=== PATIENT | male | born 1980 | race Caucasian/White ===

== ENCOUNTER → 2017-02-03 | Outpatient (CLI) | payer SELFPAY | END | disposition home or self-care (01) | LOC: US 09:13 | DX: R10.11 Right upper quadrant pain (principal) ==

== ENCOUNTER 2017-02-22 07:54 | Inpatient (IN) | payer SELFPAY ==
[~2017-02-22] VITALS: Ht 172.7 cm; Wt 59.4 kg
--- NOTE | ~2017-02-22 | PR ---
[place], [place] PROGRESS NOTE NAME: NASREEN RUBIO III [facility] #: [id number] UNIT #: [id number] ROOM: 422 DOCTOR: BRIANA CORCORAN MD BIRTHDATE: [birth year] DOS: 03/01/2017 SUBJECTIVE: The patient is doing better. He is alert and awake and responsive. He is getting his pain medications, that is, Dilaudid every 3 hours. REVIEW OF SYSTEMS HEENT: No trouble swallowing. No double vision. No loss of vision. No pain. ENT AND RESPIRATORY: No wheeze. No change in voice. No cough. No shortness of breath. No coughing up blood. No epistaxis. CARDIOLOGIC: No chest pain. No dizziness. No irregular heartbeat. No leg edema. No palpitations. No shortness of breath. HEMATOLOGIC AND LYMPH: No past transfusion. No fatigue. No loss of appetite. No easy bruising. GASTROENTEROLOGIC: No change in bowel habits. No vomiting blood. No abdominal cramping. No nausea. No vomiting. No diarrhea. No constipation. No blood in stool. MALE REPRODUCTIVE: No testicular pain. No penile discharge. MUSCULOSKELETAL: No back pain. No muscle pain or weakness. No tingling/numbness. UROLOGIC: No pain with urination. No difficulty urinating. No frequent urination. NEUROLOGIC: No burning pain in feet. No trouble with coordination. No loss of consciousness. No headache. No tingling/numbness. No memory loss. OBJECTIVE: GENERAL: A pleasant gentleman, in no apparent distress. VITAL SIGNS: Blood pressure 123/59, respirations 18. Temperature 98.3. HEENT: Normocephalic, atraumatic NECK AND THYROID: Supple. No JVD, thyromegaly, or lymphadenopathy. HEART: Normal S1, S2. Regular rate and rhythm. LUNGS: Clear to auscultation and percussion. ABDOMEN: Soft. Bowel sounds positive. Not distended. Less tender. Debbie in place. EXTREMITIES: Normal ROM. No clubbing. No edema. LABORATORY DATA: White count of 17.6, hemoglobin 12.0, hematocrit 36.8, MCV 78.3. Platelets 502. Sodium 130, potassium 4.0, chloride 91, bicarbonate 32. EGFR more than 60. ASSESSMENT: 1. Metastatic colon cancer with mets to the liver, status post biopsy of the liver positive for adenocarcinoma. 2. Biopsy of the colectomy is pending. 3. Thrombocytosis, reactive. 4. Leukocytosis, reactive/infection. PLAN: I had detailed discussion with the patient about his overall condition. We will wait for the final report to come back. In the meantime, continue antibiotics and pain medications. I expect the platelet count and white count to improve once his overall condition improves. Ample time was given for the [place], [place] PROGRESS NOTE NAME: NASREEN RUBIO III UNIT #: [id number] ROOM: 422 DOCTOR: BRIANA CORCORAN MD BIRTHDATE: [birth year] patient to ask me questions. BRIANA CORCORAN MD CM:PNTRANS [id number] BRIANA CORCORAN MD 03/01/17926 interface
--- NOTE | ~2017-02-22 | CON ---
[place], [place] REPORT OF CONSULTATION NAME: NASREEN RUBIO III [facility] #: [id number] UNIT #: [id number] ROOM: 422 DOCTOR: RO LOPEZ MDANTHONYNAJMA BIRTHDATE: [birth year] DOS: HISTORY OF PRESENT ILLNESS: This is a 37-year-old patient who presented with chief complaint of right lower abdominal pain. The patient labels herself as having Crohn's disease in 1998. However, he has at no time being on the medication. The patient has been seen in outpatient clinics and he has been given a trial of iron supplementation and few trials of prednisone tapering dose management; however, it has not helped the situation and the patient had to be admitted for definitive evaluation. A panel of blood work was done. Lactic acid was 1.1. CBC: White blood cell 10, H and H of 11 and 37, microcytic indices all across. INR was 1.1. Comprehensive metabolic panel, GFR greater than 60. Electrolytes were balanced. Liver function test was normal. C-reactive protein 8.1. Urinalysis was unremarkable. CT scan of the abdomen and pelvis, extensive mass-like thickening predominantly at the hepatic flexure of the colon. PAST MEDICAL HISTORY: Suspected to have been Crohn's two decades ago. SOCIAL HISTORY: Nonsmoker, social alcohol consumer. FAMILY HISTORY: Noncontributory. PAST SURGICAL HISTORY: None. He mentions he has had back surgery and endoscopies. ALLERGIES: To no known medication. FAMILY HISTORY: Noncontributory. REVIEW OF SYSTEMS: GENERAL: No hematemesis, no hematochezia, no shortness of breath, no chest pain. DIGESTIVE SYSTEM: No diarrhea, no hematochezia. PHYSICAL EXAMINATION: GENERAL: Well-nourished. HEENT: Head normocephalic, nontraumatic. Eyes: Pupils round, reactive. Sclerae nonicteric. Mouth and buccal mucosa benign. NECK: Supple. No thyromegaly. No cervical lymphadenopathy. CHEST: Symmetric anatomy, equal expansion. No wheeze. No rhonchi. HEART: Normal sinus rhythm, no gallop, no murmur. ABDOMEN: Soft. No hepato-organomegaly. No rebound tenderness. Bowel sounds within normal limit. In subxiphoid area, he has a small rectus abdominis muscle split and has not been dominant hernia yet. Bowel sounds present. EXTREMITIES: No cyanosis. No pedal edema. NEUROLOGIC: Alert, oriented to time, place and person. IMPRESSION: Abnormal CT scan of the abdomen and right lower quadrant, right upper quadrant pain, old ambiguous history of Crohn's disease for past 20 years without be under treatment, status post multiple trials of the steroids and [place], [place] REPORT OF CONSULTATION NAME: NASREEN RUBIO III UNIT #: [id number] ROOM: 422 DOCTOR: CARLOS LOPEZ MD BIRTHDATE: [birth year] iron therapy, microcytic anemia. PLAN AND DISCUSSION: We will organize a colonoscopy on Monday. This is particularly of interest that his weight loss of 15 pounds could be associated with this suppression of appetite. Thank you very much indeed. CARLOS LOPEZ MD CM:CONSTR:REPORT OF CONSULTATION 1235 02/22/17 4810 interface
--- NOTE | ~2017-02-22 | PR ---
[place], [place] PROGRESS NOTE NAME: NASREEN RUBIO III [facility] #: [id number] UNIT #: [id number] ROOM: 422 DOCTOR: BRIANA CORCORAN MD BIRTHDATE: [birth year] DOS: 02/28/2017 SUBJECTIVE: The patient is doing better. He is more alert and responsive. REVIEW OF SYSTEMS: HEENT: No trouble swallowing. No double vision. No loss of vision. No pain. ENT AND RESPIRATORY: No wheeze. No change in voice. No cough. No shortness of breath. No coughing up blood. No epistaxis. CARDIOLOGIC: No chest pain. No dizziness. No irregular heartbeat. No leg edema. No palpitations. No shortness of breath. HEMATOLOGIC AND LYMPH: No past transfusion. No fatigue. No loss of appetite. No easy bruising. GASTROENTEROLOGIC: No change in bowel habits. No vomiting blood. No abdominal cramping. No nausea. No vomiting. No diarrhea. No constipation. No blood in stool. MALE REPRODUCTIVE: No testicular pain. No penile discharge. MUSCULOSKELETAL: No back pain. No muscle pain or weakness. No tingling/numbness. UROLOGIC: No pain with urination. No difficulty urinating. No frequent urination. NEUROLOGIC: No burning pain in feet. No trouble with coordination. No loss of consciousness. No headache. No tingling/numbness. No memory loss. PHYSICAL EXAMINATION: GENERAL: Pleasant gentleman, in no apparent distress. VITAL SIGNS: Blood pressure 120/79, respirations 18, pulse 84 and temperature 98.0. HEENT: Normocephalic, atraumatic. NECK AND THYROID: Supple. No JVD, thyromegaly or lymphadenopathy. HEART: Normal S1, S2. Regular rate and rhythm. LUNGS: Clear to auscultation and percussion. ABDOMEN: Soft. Nontender, nondistended. Bowel sounds present. EXTREMITIES: Normal ROM. No clubbing. No edema. LABORATORY DATA: Sodium 131, potassium 4.2, chloride 94 and bicarbonate 29. EGFR is more than 60. White count of 13.8, hemoglobin 11.1, hematocrit 35.1 and platelet count of 451,000. Per pathology, biopsy of the liver showed invasive adenocarcinoma, colon biopsy is pending. ASSESSMENT: 1. Metastatic stage 4 adenocarcinoma of the colon with metastasis to the liver. 2. Leukocytosis, reactive. 3. Anemia of neoplastic disorder. 4. Status post colon resection. PLAN: I have discussed in detail about the pathology reports. I also told that biopsy of the colon is still pending. Once I get everything together, further intervention. In the meantime, the patient is continuing on intensive spirometry, ambulation, as well as n.p.o. with IV fluids. Ample time was given to the patient to ask me questions. [place], [place] PROGRESS NOTE NAME: NASREEN RUBIO III UNIT #: [id number] ROOM: 422 DOCTOR: BRIANA CORCORAN MD BIRTHDATE: [birth year] BRIANA CORCORAN MD CM:PNTRANS 1331 1357 BRIANA CORCORAN MD 02/28/17 1357 interface
--- NOTE | ~2017-02-22 | PR ---
[place], [place] PROGRESS NOTE NAME: NASREEN RUBIO III [facility] #: [id number] UNIT #: [id number] ROOM: 422 DOCTOR: BRIANA CORCORAN MD BIRTHDATE: [birth year] DOS: 02/27/2017 SUBJECTIVE: He underwent colectomy and liver biopsy. PHYSICAL EXAMINATION: GENERAL: A pleasant gentleman in no apparent distress. VITAL SIGNS: Stable. HEENT: Normocephalic, atraumatic NECK AND THYROID: Supple. No JVD, thyromegaly, or lymphadenopathy. HEART: Normal S1, S2. Regular rate and rhythm. LUNGS: Clear to auscultation and percussion. ABDOMEN: Soft, tender. EXTREMITIES: Normal ROM. No clubbing. No edema. ASSESSMENT: 1. Metastatic colon cancer, status post colectomy and liver biopsy. 2. Hyponatremia. 3. Normocytic anemia. PLAN: We will wait for the path reports to come back. Depending upon that, further intervention discussed. BRIANA CORCORAN MD CM:PNTRANS 1330 1411 BRIANA CORCORAN MD 02/27/17 1411 interface
--- NOTE | ~2017-02-22 | PR ---
[place], [place] PROGRESS NOTE NAME: NASREEN RUBIO III [facility] #: [id number] UNIT #: [id number] ROOM: 422 DOCTOR: BRIANA CORCORAN MD BIRTHDATE: [birth year] DOS: 03/06/2017 SUBJECTIVE: The patient is doing much better. He has started eating. He is awake, alert, and responsive. REVIEW OF SYSTEMS: HEENT: No trouble swallowing. No double vision. No loss of vision. No pain. ENT AND RESPIRATORY: No wheeze. No change in voice. No cough. No shortness of breath. No coughing up blood. No epistaxis. CARDIOLOGIC: No chest pain. No dizziness. No irregular heartbeat. No leg edema. No palpitations. No shortness of breath. HEMATOLOGIC AND LYMPH: No past transfusion. No fatigue. No loss of appetite. No easy bruising. GASTROENTEROLOGIC: No change in bowel habits. No vomiting blood. No abdominal cramping. No nausea. No vomiting. No diarrhea. No constipation. No blood in stool. MALE REPRODUCTIVE: No testicular pain. No penile discharge. MUSCULOSKELETAL: No back pain. No muscle pain or weakness. No tingling/numbness. UROLOGIC: No pain with urination. No difficulty urinating. No frequent urination. NEUROLOGIC: No burning pain in feet. No trouble with coordination. No loss of consciousness. No headache. No tingling/numbness. No memory loss. PHYSICAL EXAMINATION: GENERAL: Pleasant gentleman in no apparent distress. VITAL SIGNS: Blood pressure 101/72, respirations 20, pulse 95, and temperature 98.2. HEENT: Normocephalic, atraumatic NECK AND THYROID: Supple. No JVD, thyromegaly, or lymphadenopathy. HEART: Normal S1, S2. Regular rate and rhythm. LUNGS: Clear to auscultation and percussion. ABDOMEN: Soft and nondistended. Incision dry and aditya intact. EXTREMITIES: Normal ROM. No clubbing. No edema. LABORATORY DATA: Sodium 135, potassium 4.0, chloride 100, and bicarbonate 29. White count 9.7, hemoglobin 11.5, hematocrit 35.8, and platelet count 556. Pathology was consistent with metastatic colon cancer. ASSESSMENT: 1. Metastatic stage IV colon cancer with mets to the liver. 2. Thrombocytosis, reactive. 3. Mild anemia. 4. ____. PLAN: Overall, he is doing much better. We will follow him as an outpatient. We will give him time to heal. I will review the path reports with pathologist regarding further intervention. Discussed with the patient in detail. Ample time was given to the patient to ask me questions. [place], [place] PROGRESS NOTE NAME: NASREEN RUBIO III UNIT #: [id number] ROOM: 422 DOCTOR: BRIANA CORCORAN MD BIRTHDATE: [birth year] BRIANA CORCORAN MD CM:PNADENIKE 1314 BRIANA CORCORAN MD 03/06/17 1348 interface
--- NOTE | ~2017-02-22 | CON ---
[place], [place] REPORT OF CONSULTATION NAME: NASREEN RUBIO III [facility] #: [id number] UNIT #: [id number] ROOM: 422 DOCTOR: BRIANA CORCORAN MD BIRTHDATE: [birth year] DOS: 02/25/2017 HISTORY OF PRESENT ILLNESS: The patient is a pleasant 37-year-old gentleman who presented to the Emergency Department complaining of right upper and lower quadrant pain for the past month. 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 He describes his pain as pressure, associated with nausea, loose stools and bloating. He has a history of Crohn's disease, which started in 1998. He has, however, not seen a physician until recently when he saw his way to doctor's clinic. He had a colonoscopy done which showed a mass and further workup revealed metastasis to the liver. I am consulted for further evaluation and management. PAST MEDICAL HISTORY: Significant for Crohn's disease [id number] after EGD and enteroscopy, history of GI bleed, intractable abdominal pain, hyponatremia and iron deficiency in the past. PAST SURGICAL HISTORY: Back surgery, history of EGD and history of colonoscopy 10 years ago and recently. SOCIAL HISTORY: No smoking or drug abuse. He drinks socially. FAMILY HISTORY: Father's age is 75. His mother has diabetes, age 64. ALLERGIES: No known allergies. MEDICATIONS: Prednisolone and ferrous sulfate. REVIEW OF SYSTEMS: CONSTITUTIONAL: No chills. No fatigue. No fever. No loss of appetite. No night sweats. No weakness. No weight loss. HEENT: No trouble swallowing. No loss of smell. No loss of hearing. No double vision. No pain. No discharge. ENT AND RESPIRATORY: No wheeze. No sore throat. No change in voice. No hearing loss. No nose bleed. No cough. No trouble breathing through nose. No shortness of breath. No coughing up blood. No epistaxis. CARDIOVASCULAR: No chest pain. No dizziness. No irregular heartbeat. No leg edema. No pain in legs while walking. No palpitations. No shortness of breath. DERMATOLOGIC: No acne. No hives. No laceration. No mole. No rash. ENDOCRINE: No cold intolerance. No diabetes. No fatigue. No hot flashes. No polydipsia. No polyuria. No urinating frequently. No weight loss. HEMATOLOGIC AND LYMPH: No fatigue. No easy bruising. GASTROENTEROLOGIC: He has been having right upper and lower quadrant pain and loss of weight. MALE REPRODUCTIVE: No testicular pain. No difficulty with erection. No diminished sexual drive. No penile discharge. MUSCULOSKELETAL: No back pain. No muscle pain or weakness. No neck pain. No tingling/numbness. No swelling/bruising. No osteoporosis treatment. OPTHALMOLOGIC: No double vision. No diminished vision. No loss of vision. [place], [place] REPORT OF CONSULTATION NAME: NASREEN RUBIO III UNIT #: [id number] ROOM: 422 DOCTOR: BRIANA CORCORAN MD BIRTHDATE: [birth year] UROLOGIC: No dysuria. No frequent nighttime urination. No pain with urination. No difficulty urinating. No blood in urine. No frequent urination. No urinary incontinence. NEUROLOGIC: No loss of sensation in specific body area. No vertigo. No burning pain in feet. No trouble with balance. No trouble with coordination. No loss of consciousness. No loss of feeling/power. No confusion. No headache. No tingling/numbness. PSYCHOLOGIC: No tinnitus. No headaches. No shortness of breath. No weight decrease. No nausea. No vomiting. No abdominal discomfort. No constipation. No diarrhea. No depression. No anxiety. PHYSICAL EXAMINATION: GENERAL: Pleasant gentleman, in no obvious distress. VITAL SIGNS: Stable. Blood pressure 140/79, respirations 20, pulse 88 and temperature 97.8. HEENT: Oral mucosa appears intact. The external ears are normal in appearance. Nares are patent without lesions, exudates, erythema, or inflammation. Tongue is symmetrical. Uvula is midline. NECK AND THYROID: Neck supple without palpable masses. Trachea is midline. No thyromegaly. No carotid bruit or JVD. BREASTS: Normal. Nipples unremarkable. No drainage. No lumps felt on either side. HEART: Normal S1, S2, without significant murmur, rub, or gallop. LUNGS: Clear to auscultation and percussion with good air entry bilaterally. The patient is breathing easily without the use of accessory muscles. Diaphragmatic excursions are intact. ABDOMEN: Tenderness in right upper quadrant. No costovertebral angle tenderness. Soft. No organomegaly or masses. No hernias present. Liver and spleen are not palpable. LYMPHATIC: No adenopathy noted in the cervical, supraclavicular, axillary or inguinal regions. NEUROLGIC: Nonfocal. Oriented to person, place, and time. MENTAL STATUS: Appropriate for mood and affect. PERIPHERAL PULSES: No varicosities. Femoral and pedal pulses are palpable. EXTREMITIES: Without cyanosis, clubbing, or edema. No gross anomalies. LABORATORY DATA: Sodium 138, potassium 3.9, chloride 104, bicarbonate 27, BUN 6 and EGFR more than 60. White count of 7.0, hemoglobin 11.3, hematocrit 36.4, MCV 79.8 and platelet count of 426. RADIOLOGY: CT of the abdomen and pelvis shows extensive mass-like thickening predominantly at the hepatic flexure of the colon, possible metastatic disease within the liver and no evidence of metastatic disease in the chest. ASSESSMENT: 1. Found to have a colon mass on colonoscopy with possible metastasis to the liver. 2. Anemia, probably of neoplastic disorder. 3. Loss of weight. 4. Intractable abdominal pain. [place], [place] REPORT OF CONSULTATION NAME: NASREEN RUBIO III UNIT #: [id number] ROOM: 422 DOCTOR: BRIANA CORCORAN MD BIRTHDATE: [birth year] PLAN: He is going for surgery on Monday. We will ask Dr. bIarra to do a biopsy of the liver also while he is in. In the meantime, we will wait for the pathology report of the colonoscopy and we will review other records, depending on further intervention. I had a detailed discussion with the patient about it, seemed to understand it. Ample time was given to the patient to ask me questions. We will follow. Thanks for the consultation and letting me participate in the care of this interesting patient. BRIANA CORCORAN MD CM:CONSTR:REPORT OF CONSULTATION 0917 02/27/17 0130 interface
--- NOTE | ~2017-02-22 | O ---
[place], [place] OPERATIVE NOTE NAME: NASREEN RUBIO III [facility] [id number] UNIT #: [id number] ROOM: 422 DOCTOR: CARLOS LOPEZ MD BIRTHDATE: [birth year] DOS: GASTROENDOSCOPIC REPORT INDICATIONS: A 37-year-old patient who has presented with chief complaint of abdominal pain, undergoing investigation. A CT scan was abnormal. PROCEDURE: Today's procedure part of investigation is colonoscopy plus biopsy. PREMEDICATION: Versed and Diprivan. SCOPE: Olympus forwarding colonoscope 10L video. REPORT: After putting the patient in the left lateral position and after application of lubricant to rectal pouch and digital examination, scope was introduced. Thereafter, under direct visualization, I advanced through the length of colon without difficulty. As we approached hepatic flexure, there is a large obstructing mass at the hepatic flexure infiltrated, ulcerated, partially obstructing. Photographic series obtained. Biopsies multiple times obtained. The patient extubated, tolerated procedure well. IMPRESSION: Large hepatic mass consistent with adenocarcinoma. PLAN: Surgical consultation, Dr. Ibarra and resection. Thank you very much indeed for your kind referral. Sincerely, CARLOS LOPEZ MD CM:OPRECORD:OPERATIVE NOTE 1117 1222 CARLOS LOPEZ MD 02/24/17 1222 interface
--- NOTE | ~2017-02-22 | PR ---
[place], [place] PROGRESS NOTE NAME: NASREEN RUBIO III [facility] #: [id number] UNIT #: [id number] ROOM: 422 DOCTOR: BRIANA CORCORAN MD BIRTHDATE: [birth year] DOS: 02/26/2017 SUBJECTIVE: The patient is doing better. He is awake, alert and responsive. PHYSICAL EXAMINATION GENERAL: Pleasant gentleman, in no apparent distress. VITAL SIGNS: Blood pressure 130/71, respirations 18, pulse 81, temperature 98.0. HEENT: Normocephalic, atraumatic NECK AND THYROID: Supple. No JVD, thyromegaly, or lymphadenopathy. HEART: Normal S1, S2. Regular rate and rhythm. LUNGS: Clear to auscultation and percussion. ABDOMEN: Soft. Nontender, nondistended. Bowel sounds present. EXTREMITIES: Normal ROM. No clubbing. No edema. LABORATORY DATA: Sodium 140, potassium 3.7, chloride 105, bicarbonate 27. White count of 8.0, hemoglobin 12.1, hematocrit 38.0, and platelet count of 468. ASSESSMENT: 1. Metastatic colon cancer. 2. History of Crohn's disease. 3. Hyponatremia. 4. Normocytic anemia, probably of neoplastic disorder. PLAN: The patient going for colon surgery, right hemicolectomy, in the morning. I have discussed the case with Dr. Ibarra also. He will also do a biopsy of the liver. I had a detailed discussion with the patient about it, seemed to understand it. Ample time was given to the patient to ask me questions. BRIANA CORCORAN MD CM:PNTRANS 0945 0259 BRIANA CORCORAN MD 02/27/17 0259 interface
--- NOTE | ~2017-02-22 | O ---
[place], [place] OPERATIVE NOTE NAME: NASREEN RUBIO III [facility] #: [id number] UNIT #: [id number] ROOM: 422 DOCTOR: FOX IBARRA MD BIRTHDATE: [birth year] DOS: 02/27/2017 PREOPERATIVE DIAGNOSIS: Advanced colon cancer with liver metastases. POSTOPERATIVE DIAGNOSIS: Advanced colon cancer with liver metastases. PROCEDURE: Exploratory laparotomy with extended right hemicolectomy with liver biopsy. SURGEON: Fox Ibarra M.D. DIRECTOR OF FIELD COORDINATION: JOSEFA. ANESTHESIA: General with endotracheal intubation. INDICATIONS: This is a 37-year-old gentleman who was admitted a few days prior to surgery with abdominal pain. Colonoscopy revealed a large mass in the region of the hepatic flexure of the colon, which was deemed to be malignant. It was decided to take the patient for the above-mentioned procedure. The procedure and its complications explained to the patient in detail. Complications that were discussed included but were not limited to bleeding, infection, hematoma/seroma/abscess formation, prolonged postoperative pain, anastomotic leak, damage to underlying vital structures and incisional hernia formation. He agreed to proceed. DESCRIPTION OF PROCEDURE: After identifying the patient, the patient was brought to the operating suite and laid in the supine position. After induction of general anesthesia, timeout procedure was called. A Mahoney catheter was placed and an NG was placed by the anesthesia team. The parts were then painted and draped in the usual sterile fashion. A midline incision with the help of knife was made. The skin and the subcutaneous tissue were incised. The fascia was incised vertically and the peritoneum was opened. Sergio retractor was placed for retraction. The mass was found to be in the region of the right colon/hepatic flexure region and was found to be pretty large. It was carefully dissected away from the retroperitoneum by incising the line of Toldt. The mass was then dissected away from the underlying retroperitoneum structures until adequate mobilization of the mass away from the retroperitoneum structures was obtained. Thereafter, a point was chosen in the region of the terminal ileum and also approximately 5 cm away from the distal end of the tumor in the mid transverse colon to the left of the middle colic artery. Both these structures (transverse colon and terminal ileum were transected with the CEE stapler). Thereafter, sequential mobilization of the mesocolon was performed with the help of serial ligation of the musculature as well as the LigaSure device. After the specimen was away completely, it was removed and sent for histopathological diagnosis. Hemostasis was achieved with the help of electrocautery and with the help of sutures and copious amounts of saline was used for irrigation. At this point, attention was turned towards the liver biopsy, which was done. This was excised partially with the help of electrocautery and sent for histopathological diagnosis. Hemostasis was achieved with the help of electrocautery in the biopsy site. At this point, [place], [place] OPERATIVE NOTE NAME: NASREEN RUBIO III UNIT #: [id number] ROOM: [facility] DOCTOR: FOX IBARRA MD BIRTHDATE: [birth year] stapled anastomosis between the terminal ileum and the mid transverse colon was done with the help of a CEE and TA stapler. The stapled line was buried with the help of 3-0 silk in an interrupted fashion. The defect in the mesenteric was closed with the help of 3-0 Vicryl in a running fashion. Thereafter, saline was used for irrigation and hemostasis was confirmed. The fascial defect was then approximated with the help of looped #1 PDS in a running fashion. The skin edges were approximated with the help of aditya. Thereafter, the subcutaneous tissue was irrigated. A dressing was placed. The patient was extubated uneventfully and brought back to the recovery room in stable fashion. Blood loss was [address] Fox Ibarra, the attending surgeon, was present throughout the operating case. Fox Ibarra MD CM:OPRECORD:OPERATIVE NOTE [id number] FOX IBARRA MD 03/06/17 0722 interface
[2017-02-22 07:59] VITALS: BP 135/94
[2017-02-22 08:46] LABS: BASO % 0.2 % (0.0-1.0); EOS # 0.1 10*3/uL (0.0-0.4); EOS % 0.5 % (1.0-4.0); HEMATOCRIT 37.7 % (42.0-52.0); HEMOGLOBIN 11.9 g/dl (14.0-18.0); LYMPH # 0.5 10*3/uL (1.3-4.4); MEAN CELL VOLUME 79.7 fl (80.0-94.0); MEAN CORPUSCULAR HGB 25.2 pg (27.0-31.0); MEAN CORPUSCULAR HGB CONC 31.6 g/dl (33.0-37.0); MEAN PLATELET VOLUME 8.1 fl (9.6-12.3); MONO # 0.8 10*3/uL (0.1-1.0); MONO % 7.3 % (3.0-9.0); NEUT # 9.1 10*3/uL (2.3-7.9); NEUT % 86.6 % (47.0-73.0); PLATELET COUNT AUTOMATED 373 10*3/uL (130-400); RED BLOOD COUNT 4.73 10*6/uL (4.50-5.90); RED CELL DISTRI WIDTH 15.8 % (0-14.5); WHITE BLOOD COUNT 10.5 10*3/uL (4.8-10.8)
[2017-02-22 08:58] LABS: PROTHROMBIN TIME 10.8 SECONDS (9.0-12.4)
[2017-02-22 09:00] LABS: ALBUMIN 3.2 gm/dl (3.1-4.5); ALKALINE PHOSPHATASE 82 U/L (45-117); BILIRUBIN, TOTAL 0.6 mg/dl (0.2-1.0); BUN 9 mg/dl (7-24); C-REACTIVE PROTEIN 8.12 MG/DL (0-0.3); CARBON DIOXIDE 27 mmol/L (21-32); CHLORIDE 100 mmol/L (98-107); EST GLOM FILT AFRICAN AMERICAN > 60 ml/min; GLUCOSE 98 mg/dL (65-99); POTASSIUM 4.1 mmol/L (3.5-5.1); SGOT/AST 16 IU/L (3-35); SGPT/ALT 54 U/L (12-78); SODIUM 135 mmol/L (136-145); TOTAL PROTEIN 6.9 gm/dL (6.4-8.2)
[2017-02-22 09:43] LABS: BILIRUBIN NEGATIVE (NEGATIVE); BLOOD NEGATIVE (NEGATIVE); CLARITY CLEAR (CLEAR); COLOR YELLOW (YELLOW); GLUCOSE NEGATIVE (NEGATIVE); KETONE NEGATIVE (NEGATIVE); LEUKO ESTERASE NEGATIVE (NEGATIVE); NITRITE NEGATIVE (NEGATIVE); PROTEIN NEGATIVE (NEGATIVE); UROBILINOGEN 0.2 E.U./dl (0.2-1.0)
[2017-02-22 09:50] LABS: BACTERIA TRACE; RBC 0-2 rbc/hpf (0-2); URINE REFLEX COMMENT NO (NO)
[2017-02-22 09:56] VITALS: BP 132/78
[2017-02-22 11:15] VITALS: BP 123/77
[2017-02-22] MEDS ORDERED: PREDNISONE5 MG PO (12:16)
[2017-02-22 16:00] VITALS: BP 109/67
[2017-02-22 20:00] VITALS: BP 108/71
[2017-02-23] VITALS: BP 110/75
[2017-02-23 07:13] LABS: BASO % 0.3 % (0.0-1.0); EOS # 0.1 10*3/uL (0.0-0.4); EOS % 1.1 % (1.0-4.0); HEMATOCRIT 36.7 % (42.0-52.0); HEMOGLOBIN 11.8 g/dl (14.0-18.0); IG # 0.1 10*3/uL (0.0-0.1); LYMPH # 0.6 10*3/uL (1.3-4.4); LYMPH % 6.2 % (27.0-41.0); MEAN CELL VOLUME 81.2 fl (80.0-94.0); MEAN CORPUSCULAR HGB 26.1 pg (27.0-31.0); MEAN CORPUSCULAR HGB CONC 32.2 g/dl (33.0-37.0); MEAN PLATELET VOLUME 8.1 fl (9.6-12.3); MONO # 0.9 10*3/uL (0.1-1.0); MONO % 8.8 % (3.0-9.0); NEUT # 8.4 10*3/uL (2.3-7.9); NEUT % 83.1 % (47.0-73.0); PLATELET COUNT AUTOMATED 376 10*3/uL (130-400); RED BLOOD COUNT 4.52 10*6/uL (4.50-5.90); RED CELL DISTRI WIDTH 15.9 % (0-14.5); WHITE BLOOD COUNT 10.1 10*3/uL (4.8-10.8)
[2017-02-23 07:45] LABS: ALBUMIN 2.7 gm/dl (3.1-4.5); CARBON DIOXIDE 29 mmol/L (21-32); CHLORIDE 100 mmol/L (98-107); POTASSIUM 4.3 mmol/L (3.5-5.1); SODIUM 135 mmol/L (136-145)
[2017-02-23 07:51] LABS: ALKALINE PHOSPHATASE 74 U/L (45-117); BILIRUBIN, TOTAL 0.7 mg/dl (0.2-1.0); BUN 6 mg/dl (7-24); EST GLOM FILT AFRICAN AMERICAN > 60 ml/min; GLUCOSE 96 mg/dL (65-99); SGOT/AST 8 IU/L (3-35); SGPT/ALT 39 U/L (12-78); TOTAL PROTEIN 6.4 gm/dL (6.4-8.2)
[2017-02-23 08:00] VITALS: BP 105/63
[2017-02-23 12:00] VITALS: BP 120/70
[2017-02-23] MEDS ORDERED: FEROSUL325 MG PO (12:44)
[2017-02-23 16:00] VITALS: BP 121/69
[2017-02-23 20:00] VITALS: BP 114/76
[2017-02-24] VITALS (9 sets, daily range): BP systolic 105–139; BP diastolic 58–83
[2017-02-24 07:24] LABS: BASO % 0.3 % (0.0-1.0); EOS # 0.1 10*3/uL (0.0-0.4); EOS % 1.3 % (1.0-4.0); HEMATOCRIT 39.2 % (42.0-52.0); HEMOGLOBIN 12.3 g/dl (14.0-18.0); LYMPH # 0.7 10*3/uL (1.3-4.4); LYMPH % 8.3 % (27.0-41.0); MEAN CELL VOLUME 80.3 fl (80.0-94.0); MEAN CORPUSCULAR HGB 25.2 pg (27.0-31.0); MEAN CORPUSCULAR HGB CONC 31.4 g/dl (33.0-37.0); MEAN PLATELET VOLUME 8.3 fl (9.6-12.3); MONO # 0.7 10*3/uL (0.1-1.0); MONO % 8.8 % (3.0-9.0); NEUT # 6.4 10*3/uL (2.3-7.9); NEUT % 80.9 % (47.0-73.0); PLATELET COUNT AUTOMATED 468 10*3/uL (130-400); RED BLOOD COUNT 4.88 10*6/uL (4.50-5.90); RED CELL DISTRI WIDTH 15.7 % (0-14.5); WHITE BLOOD COUNT 7.9 10*3/uL (4.8-10.8)
[2017-02-24 07:47] LABS: BUN 9 mg/dl (7-24); CARBON DIOXIDE 28 mmol/L (21-32); CHLORIDE 104 mmol/L (98-107); EST GLOM FILT AFRICAN AMERICAN > 60 ml/min; GLUCOSE 111 mg/dL (65-99); POTASSIUM 4.4 mmol/L (3.5-5.1); SODIUM 139 mmol/L (136-145)
[2017-02-25] VITALS: BP 114/79
[2017-02-25 06:18] LABS: BASO % 0.6 % (0.0-1.0); EOS # 0.1 10*3/uL (0.0-0.4); EOS % 1.9 % (1.0-4.0); HEMATOCRIT 36.4 % (42.0-52.0); HEMOGLOBIN 11.3 g/dl (14.0-18.0); LYMPH # 0.6 10*3/uL (1.3-4.4); LYMPH % 8.5 % (27.0-41.0); MEAN CELL VOLUME 79.8 fl (80.0-94.0); MEAN CORPUSCULAR HGB 24.8 pg (27.0-31.0); MEAN PLATELET VOLUME 8.2 fl (9.6-12.3); MONO # 0.6 10*3/uL (0.1-1.0); MONO % 8.3 % (3.0-9.0); NEUT # 5.6 10*3/uL (2.3-7.9); NEUT % 80.4 % (47.0-73.0); PLATELET COUNT AUTOMATED 426 10*3/uL (130-400); RED BLOOD COUNT 4.56 10*6/uL (4.50-5.90); RED CELL DISTRI WIDTH 15.6 % (0-14.5)
[2017-02-25 06:43] LABS: ALBUMIN 2.7 gm/dl (3.1-4.5); ALKALINE PHOSPHATASE 61 U/L (45-117); BILIRUBIN, TOTAL 0.5 mg/dl (0.2-1.0); BUN 6 mg/dl (7-24); CARBON DIOXIDE 27 mmol/L (21-32); CEA 17.6 ng/mL; CHLORIDE 104 mmol/L (98-107); EST GLOM FILT AFRICAN AMERICAN > 60 ml/min; GLUCOSE 83 mg/dL (65-99); POTASSIUM 3.9 mmol/L (3.5-5.1); SGOT/AST 10 IU/L (3-35); SGPT/ALT 28 U/L (12-78); SODIUM 138 mmol/L (136-145)
[2017-02-25 08:00] VITALS: BP 121/73
[2017-02-25 12:00] VITALS: BP 123/75
[2017-02-25 16:00] VITALS: BP 114/74
[2017-02-25 20:00] VITALS: BP 116/81
[2017-02-26] VITALS: BP 113/71
[2017-02-26 06:18] LABS: BASO % 0.3 % (0.0-1.0); EOS # 0.1 10*3/uL (0.0-0.4); EOS % 1.3 % (1.0-4.0); HEMOGLOBIN 12.1 g/dl (14.0-18.0); LYMPH # 0.7 10*3/uL (1.3-4.4); LYMPH % 8.8 % (27.0-41.0); MEAN CELL VOLUME 80.5 fl (80.0-94.0); MEAN CORPUSCULAR HGB 25.6 pg (27.0-31.0); MEAN CORPUSCULAR HGB CONC 31.8 g/dl (33.0-37.0); MEAN PLATELET VOLUME 8.1 fl (9.6-12.3); MONO # 0.6 10*3/uL (0.1-1.0); MONO % 7.2 % (3.0-9.0); NEUT # 6.5 10*3/uL (2.3-7.9); NEUT % 82.1 % (47.0-73.0); PLATELET COUNT AUTOMATED 468 10*3/uL (130-400); RED BLOOD COUNT 4.72 10*6/uL (4.50-5.90); RED CELL DISTRI WIDTH 15.5 % (0-14.5)
[2017-02-26 06:42] LABS: ALBUMIN 2.8 gm/dl (3.1-4.5); BILIRUBIN, TOTAL 0.3 mg/dl (0.2-1.0); BUN 9 mg/dl (7-24); CARBON DIOXIDE 27 mmol/L (21-32); CHLORIDE 105 mmol/L (98-107); EST GLOM FILT AFRICAN AMERICAN > 60 ml/min; GLUCOSE 99 mg/dL (65-99); POTASSIUM 3.7 mmol/L (3.5-5.1); SGOT/AST 15 IU/L (3-35); SGPT/ALT 29 U/L (12-78); SODIUM 140 mmol/L (136-145); TOTAL PROTEIN 6.4 gm/dL (6.4-8.2)
[2017-02-26 06:43] LABS: ALKALINE PHOSPHATASE 61 U/L (45-117)
[2017-02-26 08:00] VITALS: BP 126/74
[2017-02-26 12:00] VITALS: BP 112/69
[2017-02-26 16:00] VITALS: BP 136/76
[2017-02-26 20:00] VITALS: BP 116/73
[2017-02-27] VITALS (13 sets, daily range): BP systolic 100–124; BP diastolic 58–90
[2017-02-27 06:02] LABS: BASO # 0.1 10*3/uL (0.0-0.1); BASO % 0.5 % (0.0-1.0); EOS # 0.2 10*3/uL (0.0-0.4); EOS % 1.9 % (1.0-4.0); HEMATOCRIT 37.4 % (42.0-52.0); HEMOGLOBIN 11.7 g/dl (14.0-18.0); LYMPH # 0.7 10*3/uL (1.3-4.4); LYMPH % 7.2 % (27.0-41.0); MEAN CELL VOLUME 81.1 fl (80.0-94.0); MEAN CORPUSCULAR HGB 25.4 pg (27.0-31.0); MEAN CORPUSCULAR HGB CONC 31.3 g/dl (33.0-37.0); MEAN PLATELET VOLUME 8.3 fl (9.6-12.3); MONO # 0.6 10*3/uL (0.1-1.0); MONO % 6.1 % (3.0-9.0); NEUT # 7.8 10*3/uL (2.3-7.9); NEUT % 83.9 % (47.0-73.0); PLATELET COUNT AUTOMATED 471 10*3/uL (130-400); RED BLOOD COUNT 4.61 10*6/uL (4.50-5.90); RED CELL DISTRI WIDTH 15.7 % (0-14.5); WHITE BLOOD COUNT 9.3 10*3/uL (4.8-10.8)
[2017-02-28] VITALS: BP 123/77
[2017-02-28 04:00] VITALS: BP 122/82
[2017-02-28 06:03] LABS: HEMATOCRIT 35.1 % (42.0-52.0); HEMOGLOBIN 11.1 g/dl (14.0-18.0); MEAN CELL VOLUME 80.7 fl (80.0-94.0); MEAN CORPUSCULAR HGB 25.5 pg (27.0-31.0); MEAN CORPUSCULAR HGB CONC 31.6 g/dl (33.0-37.0); MEAN PLATELET VOLUME 8.3 fl (9.6-12.3); PLATELET COUNT AUTOMATED 451 10*3/uL (130-400); RED BLOOD COUNT 4.35 10*6/uL (4.50-5.90); RED CELL DISTRI WIDTH 15.6 % (0-14.5); WHITE BLOOD COUNT 13.8 10*3/uL (4.8-10.8)
[2017-02-28 06:30] LABS: ALBUMIN 2.5 gm/dl (3.1-4.5); ALKALINE PHOSPHATASE 50 U/L (45-117); BILIRUBIN, TOTAL 0.7 mg/dl (0.2-1.0); BUN 4 mg/dl (7-24); CARBON DIOXIDE 29 mmol/L (21-32); CHLORIDE 94 mmol/L (98-107); EST GLOM FILT AFRICAN AMERICAN > 60 ml/min; GLUCOSE 117 mg/dL (65-99); POTASSIUM 4.2 mmol/L (3.5-5.1); SGOT/AST 33 IU/L (3-35); SGPT/ALT 33 U/L (12-78); SODIUM 131 mmol/L (136-145); TOTAL PROTEIN 5.6 gm/dL (6.4-8.2)
[2017-02-28 06:36] LABS: EOSINOPHIL # 0.1 10*3/uL (0-0.4); EOSINOPHILS 1 % (1-4); LYMPHOCYTE # 0.3 10*3/uL (1.3-4.4); MONOCYTE # 0.4 10*3/uL (0.1-1.0); NEUTROPHILS 94 % (47-73); PLATELET SUFFICIENCY HIGH (NORMAL); TOTAL CELLS COUNTED 100 #CELLS
[2017-02-28 08:00] VITALS: BP 120/79
[2017-02-28 12:00] VITALS: BP 120/74
[2017-02-28 16:00] VITALS: BP 129/85
[2017-02-28 19:48] VITALS: BP 132/84
[2017-03-01] VITALS: BP 126/85
[2017-03-01 04:46] LABS: HEMATOCRIT 36.8 % (42.0-52.0); MEAN CELL VOLUME 78.3 fl (80.0-94.0); MEAN CORPUSCULAR HGB 25.5 pg (27.0-31.0); MEAN CORPUSCULAR HGB CONC 32.6 g/dl (33.0-37.0); PLATELET COUNT AUTOMATED 502 10*3/uL (130-400); RED CELL DISTRI WIDTH 15.2 % (0-14.5); WHITE BLOOD COUNT 17.6 10*3/uL (4.8-10.8)
[2017-03-01 05:12] LABS: ALBUMIN 2.5 gm/dl (3.1-4.5); ALKALINE PHOSPHATASE 52 U/L (45-117); BILIRUBIN, TOTAL 0.4 mg/dl (0.2-1.0); BUN 5 mg/dl (7-24); CARBON DIOXIDE 32 mmol/L (21-32); CHLORIDE 91 mmol/L (98-107); EST GLOM FILT AFRICAN AMERICAN > 60 ml/min; GLUCOSE 138 mg/dL (65-99); SGOT/AST 33 IU/L (3-35); SGPT/ALT 35 U/L (12-78); SODIUM 130 mmol/L (136-145)
[2017-03-01 05:13] LABS: LYMPHOCYTE # 0.9 10*3/uL (1.3-4.4); MONOCYTE # 0.9 10*3/uL (0.1-1.0); NEUTROPHIL # 15.8 10*3/uL (2.3-7.9); NEUTROPHILS 90 % (47-73); PLATELET SUFFICIENCY HIGH (NORMAL); TOTAL CELLS COUNTED 100 #CELLS
[2017-03-01 08:00] VITALS: BP 123/59
[2017-03-01 12:00] VITALS: BP 120/76
[2017-03-01 16:00] VITALS: BP 120/77
[2017-03-01 20:00] VITALS: BP 116/69
[2017-03-02] VITALS: BP 120/81
[2017-03-02 05:13] LABS: BASO % 0.2 % (0.0-1.0); EOS % 0.3 % (1.0-4.0); HEMATOCRIT 33.4 % (42.0-52.0); HEMOGLOBIN 10.5 g/dl (14.0-18.0); IG # 0.1 10*3/uL (0.0-0.1); LYMPH # 0.3 10*3/uL (1.3-4.4); LYMPH % 2.6 % (27.0-41.0); MEAN CELL VOLUME 78.8 fl (80.0-94.0); MEAN CORPUSCULAR HGB 24.8 pg (27.0-31.0); MEAN CORPUSCULAR HGB CONC 31.4 g/dl (33.0-37.0); MEAN PLATELET VOLUME 8.1 fl (9.6-12.3); MONO # 0.9 10*3/uL (0.1-1.0); MONO % 7.2 % (3.0-9.0); NEUT # 11.5 10*3/uL (2.3-7.9); NEUT % 89.2 % (47.0-73.0); PLATELET COUNT AUTOMATED 454 10*3/uL (130-400); RED BLOOD COUNT 4.24 10*6/uL (4.50-5.90); RED CELL DISTRI WIDTH 15.4 % (0-14.5); WHITE BLOOD COUNT 12.9 10*3/uL (4.8-10.8)
[2017-03-02 05:29] LABS: BUN 6 mg/dl (7-24); CARBON DIOXIDE 30 mmol/L (21-32); CHLORIDE 100 mmol/L (98-107); EST GLOM FILT AFRICAN AMERICAN > 60 ml/min; GLUCOSE 124 mg/dL (65-99); POTASSIUM 3.8 mmol/L (3.5-5.1); SODIUM 136 mmol/L (136-145)
[2017-03-02 08:00] VITALS: BP 123/86
[2017-03-02 12:00] VITALS: BP 130/87
[2017-03-02 16:00] VITALS: BP 109/61
[2017-03-02 20:00] VITALS: BP 119/82
[2017-03-03] VITALS: BP 123/82
[2017-03-03 06:11] LABS: BASO % 0.4 % (0.0-1.0); EOS # 0.1 10*3/uL (0.0-0.4); EOS % 0.9 % (1.0-4.0); HEMATOCRIT 32.6 % (42.0-52.0); HEMOGLOBIN 10.6 g/dl (14.0-18.0); LYMPH # 0.5 10*3/uL (1.3-4.4); LYMPH % 4.5 % (27.0-41.0); MEAN CELL VOLUME 78.6 fl (80.0-94.0); MEAN CORPUSCULAR HGB 25.5 pg (27.0-31.0); MEAN CORPUSCULAR HGB CONC 32.5 g/dl (33.0-37.0); MEAN PLATELET VOLUME 8.2 fl (9.6-12.3); MONO # 0.9 10*3/uL (0.1-1.0); MONO % 7.7 % (3.0-9.0); NEUT # 9.7 10*3/uL (2.3-7.9); NEUT % 86.2 % (47.0-73.0); PLATELET COUNT AUTOMATED 479 10*3/uL (130-400); RED BLOOD COUNT 4.15 10*6/uL (4.50-5.90); RED CELL DISTRI WIDTH 15.5 % (0-14.5); WHITE BLOOD COUNT 11.2 10*3/uL (4.8-10.8)
[2017-03-03 06:43] LABS: BUN 6 mg/dl (7-24); CARBON DIOXIDE 26 mmol/L (21-32); CHLORIDE 102 mmol/L (98-107); EST GLOM FILT AFRICAN AMERICAN > 60 ml/min; GLUCOSE 105 mg/dL (65-99); POTASSIUM 3.7 mmol/L (3.5-5.1); SODIUM 138 mmol/L (136-145)
[2017-03-03 08:00] VITALS: BP 123/78
[2017-03-03 12:00] VITALS: BP 115/81
[2017-03-03 16:00] VITALS: BP 124/81
[2017-03-03 20:00] VITALS: BP 116/78
[2017-03-04] VITALS: BP 116/84
[2017-03-04 06:40] LABS: BASO % 0.3 % (0.0-1.0); EOS # 0.1 10*3/uL (0.0-0.4); EOS % 1.2 % (1.0-4.0); HEMATOCRIT 32.9 % (42.0-52.0); HEMOGLOBIN 10.3 g/dl (14.0-18.0); LYMPH # 0.4 10*3/uL (1.3-4.4); LYMPH % 4.1 % (27.0-41.0); MEAN CELL VOLUME 79.1 fl (80.0-94.0); MEAN CORPUSCULAR HGB 24.8 pg (27.0-31.0); MEAN CORPUSCULAR HGB CONC 31.3 g/dl (33.0-37.0); MEAN PLATELET VOLUME 8.1 fl (9.6-12.3); MONO # 0.7 10*3/uL (0.1-1.0); MONO % 7.5 % (3.0-9.0); NEUT % 86.6 % (47.0-73.0); PLATELET COUNT AUTOMATED 483 10*3/uL (130-400); RED BLOOD COUNT 4.16 10*6/uL (4.50-5.90); RED CELL DISTRI WIDTH 15.4 % (0-14.5); WHITE BLOOD COUNT 9.2 10*3/uL (4.8-10.8)
[2017-03-04 07:09] LABS: BUN 6 mg/dl (7-24); CARBON DIOXIDE 28 mmol/L (21-32); CHLORIDE 100 mmol/L (98-107); EST GLOM FILT AFRICAN AMERICAN > 60 ml/min; GLUCOSE 119 mg/dL (65-99); POTASSIUM 3.4 mmol/L (3.5-5.1); SODIUM 136 mmol/L (136-145)
[2017-03-04 08:00] VITALS: BP 124/83
[2017-03-04 12:00] VITALS: BP 124/88
[2017-03-04 16:00] VITALS: BP 122/84
[2017-03-04 20:00] VITALS: BP 111/79
[2017-03-05] VITALS: BP 106/59
[2017-03-05 06:57] LABS: BASO % 0.4 % (0.0-1.0); EOS # 0.1 10*3/uL (0.0-0.4); EOS % 1.2 % (1.0-4.0); HEMATOCRIT 35.7 % (42.0-52.0); HEMOGLOBIN 11.3 g/dl (14.0-18.0); LYMPH # 0.6 10*3/uL (1.3-4.4); LYMPH % 6.3 % (27.0-41.0); MEAN CORPUSCULAR HGB CONC 31.7 g/dl (33.0-37.0); MEAN PLATELET VOLUME 8.1 fl (9.6-12.3); MONO # 0.8 10*3/uL (0.1-1.0); MONO % 8.3 % (3.0-9.0); NEUT # 8.1 10*3/uL (2.3-7.9); NEUT % 83.6 % (47.0-73.0); PLATELET COUNT AUTOMATED 497 10*3/uL (130-400); RED BLOOD COUNT 4.52 10*6/uL (4.50-5.90); RED CELL DISTRI WIDTH 15.3 % (0-14.5); WHITE BLOOD COUNT 9.7 10*3/uL (4.8-10.8)
[2017-03-05 07:08] LABS: BUN 7 mg/dl (7-24); CARBON DIOXIDE 27 mmol/L (21-32); CHLORIDE 101 mmol/L (98-107); EST GLOM FILT AFRICAN AMERICAN > 60 ml/min; GLUCOSE 98 mg/dL (65-99); POTASSIUM 3.9 mmol/L (3.5-5.1); SODIUM 135 mmol/L (136-145)
[2017-03-05 08:00] VITALS: BP 102/73
[2017-03-05 16:00] VITALS: BP 122/68
[2017-03-05 20:16] VITALS: BP 108/74
[2017-03-06] VITALS: BP 108/68
[2017-03-06 05:56] LABS: BUN 9 mg/dl (7-24); CARBON DIOXIDE 29 mmol/L (21-32); CHLORIDE 100 mmol/L (98-107); EST GLOM FILT AFRICAN AMERICAN > 60 ml/min; GLUCOSE 97 mg/dL (65-99); SODIUM 135 mmol/L (136-145)
[2017-03-06 06:18] LABS: BASO % 0.4 % (0.0-1.0); EOS # 0.2 10*3/uL (0.0-0.4); EOS % 2.2 % (1.0-4.0); HEMATOCRIT 35.8 % (42.0-52.0); HEMOGLOBIN 11.5 g/dl (14.0-18.0); LYMPH # 0.7 10*3/uL (1.3-4.4); LYMPH % 7.7 % (27.0-41.0); MEAN CELL VOLUME 78.5 fl (80.0-94.0); MEAN CORPUSCULAR HGB 25.2 pg (27.0-31.0); MEAN CORPUSCULAR HGB CONC 32.1 g/dl (33.0-37.0); MEAN PLATELET VOLUME 8.2 fl (9.6-12.3); MONO # 0.8 10*3/uL (0.1-1.0); MONO % 7.9 % (3.0-9.0); NEUT # 7.9 10*3/uL (2.3-7.9); NEUT % 81.5 % (47.0-73.0); PLATELET COUNT AUTOMATED 556 10*3/uL (130-400); RED BLOOD COUNT 4.56 10*6/uL (4.50-5.90); RED CELL DISTRI WIDTH 15.3 % (0-14.5); WHITE BLOOD COUNT 9.7 10*3/uL (4.8-10.8)
[2017-03-06 08:00] VITALS: BP 101/72
[2017-03-06 12:00] VITALS: BP 114/77
[2017-03-06] MEDS ORDERED: PEPCID20 MG PO (13:32)
[2017-03-06] MEDS ORDERED: ZOFRAN ODT4 MG SL (13:32)
== END 2017-03-06 15:07 | disposition home or self-care (01) | DRG 329 ==
LOC: ED 07:54 → EDHOLD 10:01 → 4E 10:01
PROVIDERS: Family Medicine; Internal Medicine; Internal Medicine Hospice and Palliative Medicine; Registered Nurse; Student in an Organized Health Care Education/Training Program; Surgery
PROC: 0DBK8ZX Excision of Ascending Colon, Via Natural or Artificial Opening Endoscopic, Diagnostic (ICD-10-PCS; 2017-02-24)
PROC: 0DTF0ZZ Resection of Right Large Intestine, Open Approach (ICD-10-PCS; principal; 2017-02-27)
PROC: 0FB00ZX Excision of Liver, Open Approach, Diagnostic (ICD-10-PCS; 2017-02-27)
DX: C18.9 Malignant neoplasm of colon, unspecified (principal); E43 Unspecified severe protein-calorie malnutrition; C78.7 Secondary malignant neoplasm of liver and intrahepatic bile duct; D69.6 Thrombocytopenia, unspecified; E87.1 Hypo-osmolality and hyponatremia; K92.2 Gastrointestinal hemorrhage, unspecified; K50.90 Crohn's disease, unspecified, without complications; Z68.1 Body mass index [BMI] 19.9 or less, adult; Z83.3 Family history of diabetes mellitus; D72.829 Elevated white blood cell count, unspecified; E87.6 Hypokalemia; D63.0 Anemia in neoplastic disease; D50.9 Iron deficiency anemia, unspecified

== ENCOUNTER → 2017-03-14 | Outpatient (CLI) | payer SELFPAY ==
[~2017-03-14] MED LIST: FEROSUL325 MG PO; PEPCID20 MG PO; PREDNISONE5 MG PO; ZOFRAN ODT4 MG SL
== END | disposition home or self-care (01) ==
LOC: RESCLI 00:53
DX: C18.9 Malignant neoplasm of colon, unspecified (principal); C78.7 Secondary malignant neoplasm of liver and intrahepatic bile duct; E43 Unspecified severe protein-calorie malnutrition; D64.9 Anemia, unspecified; K21.9 Gastro-esophageal reflux disease without esophagitis; K50.119 Crohn's disease of large intestine with unspecified complications

== ENCOUNTER → 2017-03-22 | Outpatient (CLI) | payer SELFPAY | END | disposition home or self-care (01) | LOC: RESCLI 03-21 15:08 | DX: C78.7 Secondary malignant neoplasm of liver and intrahepatic bile duct (principal); C18.9 Malignant neoplasm of colon, unspecified; K21.9 Gastro-esophageal reflux disease without esophagitis; K50.119 Crohn's disease of large intestine with unspecified complications; Z90.49 Acquired absence of other specified parts of digestive tract ==

== ENCOUNTER → 2017-04-21 | Day surgery (SDC) | payer MEDICAID ==
[2017-04-19 09:39] VITALS: BP 122/86
[2017-04-19 10:50] LABS: BASO # 0.1 10*3/uL (0.0-0.1); BASO % 0.7 % (0.0-1.0); EOS # 0.2 10*3/uL (0.0-0.4); EOS % 2.5 % (1.0-4.0); HEMATOCRIT 42.8 % (42.0-52.0); HEMOGLOBIN 13.5 g/dl (14.0-18.0); LYMPH # 0.8 10*3/uL (1.3-4.4); LYMPH % 10.5 % (27.0-41.0); MEAN CELL VOLUME 80.6 fl (80.0-94.0); MEAN CORPUSCULAR HGB 25.4 pg (27.0-31.0); MEAN CORPUSCULAR HGB CONC 31.5 g/dl (33.0-37.0); MEAN PLATELET VOLUME 8.9 fl (9.6-12.3); MONO # 0.6 10*3/uL (0.1-1.0); NEUT # 5.8 10*3/uL (2.3-7.9); PLATELET COUNT AUTOMATED 389 10*3/uL (130-400); RED BLOOD COUNT 5.31 10*6/uL (4.50-5.90); RED CELL DISTRI WIDTH 16.3 % (0-14.5); WHITE BLOOD COUNT 7.5 10*3/uL (4.8-10.8)
[2017-04-19 11:19] LABS: BUN 9 mg/dl (7-24); CHLORIDE 102 mmol/L (98-107); CREATININE 0.76 mg/dL (0.70-1.30); POTASSIUM 4.3 mmol/L (3.5-5.1); SODIUM 136 mmol/L (136-145)
[2017-04-19 13:24] LABS: BILIRUBIN NEGATIVE (NEGATIVE); BLOOD NEGATIVE (NEGATIVE); CLARITY CLEAR (CLEAR); COLOR YELLOW (YELLOW); GLUCOSE NEGATIVE (NEGATIVE); KETONE NEGATIVE (NEGATIVE); LEUKO ESTERASE NEGATIVE (NEGATIVE); NITRITE NEGATIVE (NEGATIVE); PH 5.5 (5.0-9.0); UROBILINOGEN 0.2 E.U./dl (0.2-1.0)
[2017-04-19 13:34] LABS: MUCOUS 2+; RBC 0-2 rbc/hpf (0-2)
[~2017-04-21] VITALS: Ht 172.7 cm; Wt 59.0 kg
--- NOTE | ~2017-04-21 | O ---
[place], [place] OPERATIVE NOTE NAME: NASREEN RUBIO III [facility] #: [id number] UNIT #: [id number] ROOM: DOCTOR: FOX IBARRA MD BIRTHDATE: [birth year] DOS: 04/21/2017 PREOPERATIVE DIAGNOSIS: Advanced colon cancer. POSTOPERATIVE DIAGNOSIS: Advanced colon cancer. PROCEDURE: Left internal jugular MediPort placement. SURGEON: Fox Ibarra MD EDGE DRUMMER: JOSEFA. ANESTHESIA: MAC with local. INDICATIONS: This is a 37-year-old gentleman with a history of advanced colon cancer who is on chemotherapy who is here for a left internal jugular MediPort placement. Procedure, risks and complications were explained to patient in detail preoperatively. Complications that were discussed included, but were not limited to bleeding, infection, pneumothorax, hemothorax and prolonged pain. He agreed to proceed. DESCRIPTION OF PROCEDURE: After identifying the patient, the patient was brought to the operating suite and laid in the supine position. After IV sedation was administered, a timeout procedure was called and the parts were then painted and draped in the usual sterile fashion. Access to the left internal jugular vein was obtained with the help of an ultrasound. After the guidewire was placed, it was confirmed to be in good placement. Thereafter, a pocket was created in the anterior chest wall 2 fingerbreadths below the left clavicle after injected local anesthesia. Thereafter, the catheter was passed through this incision that was made on the anterior chest wall into the internal jugular access site in the neck. Dilator and sheath was passed over the wire and the catheter was passed over into the sheath until it was confirmed to be in good placement on fluoroscopy. Thereafter, the catheter was cut to size and the port was attached and it was flushed with heparin and was found to flush well and also the aspiration of blood was adequate. The port was then fixed to the underlying chest wall fascia with the help of 3-0 Prolene and the subcutaneous tissues as well as the skin were then approximated with the help of 3-0 and 4-0 Vicryl respectively and dressing was placed. The patient was taken to the recovery room in stable fashion. There were no complications. A chest x-ray was ordered for placement in the recovery room. Dr. Fox Ibarra, the attending surgeon, was present throughout the operating case. [place], [place] OPERATIVE NOTE NAME: NASREEN RUBOI III UNIT #: [id number] ROOM: DOCTOR: FOX IBARRA MD BIRTHDATE: [birth year] Fox Ibarra MD CM:OPRECORD:OPERATIVE NOTE [id number] FOX IBARRA MD 04/25/17 0726 interface
[2017-04-21 07:50] VITALS: BP 132/89
[2017-04-21 10:30] VITALS: BP 127/69
[2017-04-21 10:45] VITALS: BP 108/55
[2017-04-21 11:00] VITALS: BP 111/78
[2017-04-21 11:23] VITALS: BP 117/75
== END | disposition home or self-care (01) ==
LOC: SDC 04-19 09:30
PROVIDERS: Surgery
DX: C18.9 Malignant neoplasm of colon, unspecified (principal); Z98.890 Other specified postprocedural states

== ENCOUNTER → 2017-05-20 | Outpatient (CLI) | payer OTHER ==
[2017-05-20 14:19] LABS: BASO % 0.9 % (0.0-1.0); EOS # 0.2 10*3/uL (0.0-0.4); EOS % 3.8 % (1.0-4.0); HEMATOCRIT 38.2 % (42.0-52.0); HEMOGLOBIN 11.9 g/dl (14.0-18.0); LYMPH # 0.5 10*3/uL (1.3-4.4); LYMPH % 11.7 % (27.0-41.0); MEAN CELL VOLUME 79.3 fl (80.0-94.0); MEAN CORPUSCULAR HGB 24.7 pg (27.0-31.0); MEAN CORPUSCULAR HGB CONC 31.2 g/dl (33.0-37.0); MEAN PLATELET VOLUME 9.6 fl (9.6-12.3); MONO # 0.6 10*3/uL (0.1-1.0); MONO % 14.1 % (3.0-9.0); NEUT # 3.1 10*3/uL (2.3-7.9); NEUT % 69.3 % (47.0-73.0); PLATELET COUNT AUTOMATED 146 10*3/uL (130-400); RED BLOOD COUNT 4.82 10*6/uL (4.50-5.90); RED CELL DISTRI WIDTH 16.8 % (0-14.5); WHITE BLOOD COUNT 4.5 10*3/uL (4.8-10.8)
[2017-05-20 14:33] LABS: BUN 4 mg/dl (7-24); CREATININE 0.85 mg/dL (0.70-1.30)
== END | disposition home or self-care (01) ==
LOC: LAB 13:50
PROVIDERS: Internal Medicine Hematology & Oncology
DX: C18.3 Malignant neoplasm of hepatic flexure (principal)

== ENCOUNTER → 2017-06-04 | Outpatient (CLI) | payer OTHER ==
[2017-06-04 17:47] LABS: BASO % 0.8 % (0.0-1.0); EOS # 0.2 10*3/uL (0.0-0.4); EOS % 4.3 % (1.0-4.0); HEMATOCRIT 39.8 % (42.0-52.0); HEMOGLOBIN 12.5 g/dl (14.0-18.0); LYMPH # 0.6 10*3/uL (1.3-4.4); LYMPH % 12.6 % (27.0-41.0); MEAN CELL VOLUME 79.6 fl (80.0-94.0); MEAN CORPUSCULAR HGB CONC 31.4 g/dl (33.0-37.0); MEAN PLATELET VOLUME 8.7 fl (9.6-12.3); MONO # 0.8 10*3/uL (0.1-1.0); MONO % 15.8 % (3.0-9.0); NEUT # 3.4 10*3/uL (2.3-7.9); NEUT % 66.3 % (47.0-73.0); PLATELET COUNT AUTOMATED 203 10*3/uL (130-400); RED CELL DISTRI WIDTH 18.2 % (0-14.5); WHITE BLOOD COUNT 5.1 10*3/uL (4.8-10.8)
[2017-06-04 18:01] LABS: BUN 6 mg/dl (7-24)
== END | disposition home or self-care (01) ==
LOC: LAB 17:03
PROVIDERS: Internal Medicine Hematology & Oncology
DX: C18.3 Malignant neoplasm of hepatic flexure (principal)

== ENCOUNTER → 2017-06-18 | Outpatient (CLI) | payer OTHER ==
[2017-06-18 18:00] LABS: HEMOGLOBIN 13.6 g/dl (14.0-18.0); MEAN CELL VOLUME 79.2 fl (80.0-94.0); MEAN CORPUSCULAR HGB 25.7 pg (27.0-31.0); MEAN CORPUSCULAR HGB CONC 32.4 g/dl (33.0-37.0); PLATELET COUNT AUTOMATED 225 10*3/uL (130-400); RED CELL DISTRI WIDTH 18.5 % (0-14.5); WHITE BLOOD COUNT 3.2 10*3/uL (4.8-10.8)
[2017-06-18 18:10] LABS: BUN 11 mg/dl (7-24); CREATININE 0.94 mg/dL (0.70-1.30)
[2017-06-18 18:24] LABS: BASOPHILS 3 % (0-1); POLYCHROMASIA SLIGHT; TOTAL CELLS COUNTED 100 #CELLS
[2017-06-18 18:26] LABS: MICROCYTOSIS SLIGHT
[2017-06-18 18:29] LABS: PLATELET SUFFICIENCY NORMAL (NORMAL)
== END | disposition home or self-care (01) ==
LOC: LAB 17:40
PROVIDERS: Internal Medicine Hematology & Oncology
DX: C18.3 Malignant neoplasm of hepatic flexure (principal)

== ENCOUNTER 2017-06-27 12:14 | Inpatient (IN) | payer OTHER ==
[~2017-06-27] VITALS: Ht 170 cm; Wt 52.0 kg
--- NOTE | ~2017-06-27 | CON ---
[place], [place] REPORT OF CONSULTATION NAME: NASREEN RUBIO III [facility] #: [id number] UNIT #: [id number] ROOM: 422 DOCTOR: BRIANA CORCORAN MD BIRTHDATE: [birth year] DOS: 06/28/2017 HISTORY OF PRESENT ILLNESS: The patient is a pleasant 37-year-old gentleman with a history of metastatic colon cancer, undergoing chemotherapy. States that he has been having quite a bit of diarrhea rather than much nausea, vomiting and took Imodium without much help and was also taking Pepto-Bismol, subsequently has not been eating good and not been drinking fluids and came to the ER, admitted for further evaluation. He underwent right hemicolectomy on 02/27/2017 and has been under treatment. CT scan showed a 1.4 cm hypodensity within the mesenteric fat, right side of the abdomen, could represent necrotic lymph node. PAST MEDICAL HISTORY: Significant for stage IV metastatic colon cancer, Crohn's disease, GI bleed. PAST SURGICAL HISTORY: Back surgery, EGD, history of colonoscopy as well as colon resection recently. SOCIAL HISTORY: No smoking, drinking, or drug abuse. FAMILY HISTORY: Father age 75. Mother has diabetes, hypertension, age 64. ALLERGIES: No allergies. MEDICATIONS: As per records. REVIEW OF SYSTEMS: CONSTITUTIONAL: No chills. No fatigue. No fever. No loss of appetite. No night sweats. No weakness. No weight loss. HEENT: No trouble swallowing. No loss of smell. No loss of hearing. No double vision. No pain. No discharge. ENT AND RESPIRATORY: No wheeze. No sore throat. No change in voice. No hearing loss. No nose bleed. No cough. No trouble breathing through nose. No shortness of breath. No coughing up blood. No epistaxis. CARDIOVASCULAR: No chest pain. No dizziness. No irregular heartbeat. No leg edema. No pain in legs while walking. No palpitations. No shortness of breath. DERMATOLOGIC: No acne. No hives. No laceration. No mole. No rash. ENDOCRINE: No cold intolerance. No diabetes. No fatigue. No hot flashes. No polydipsia. No polyuria. No urinating frequently. No weight loss. HEMATOLOGIC AND LYMPH: No fatigue. No easy bruising. GASTROENTEROLOGIC: No change in bowel habits. No indigestion. No frequent bloating. No vomiting blood. No abdominal cramping. No nausea. No heartburn. No vomiting. No abdominal pain. No dysphagia. No diarrhea. No constipation. No blood in stool. MALE REPRODUCTIVE: No testicular pain. No difficulty with erection. No diminished sexual drive. No penile discharge. MUSCULOSKELETAL: No back pain. No muscle pain or weakness. No neck pain. No tingling/numbness. No swelling/bruising. No osteoporosis treatment. OPTHALMOLOGIC: No double vision. No diminished vision. No loss of vision. UROLOGIC: No dysuria. No frequent nighttime urination. No pain with [place], [place] REPORT OF CONSULTATION NAME: NASREEN RUBIO III UNIT #: [id number] ROOM: [facility] DOCTOR: BRIANA CORCORAN MD BIRTHDATE: [birth year] urination. No difficulty urinating. No blood in urine. No frequent urination. No urinary incontinence. NEUROLOGIC: No loss of sensation in specific body area. No vertigo. No burning pain in feet. No trouble with balance. No trouble with coordination. No loss of consciousness. No loss of feeling/power. No confusion. No headache. No tingling/numbness. PSYCHOLOGIC: No tinnitus. No headaches. No shortness of breath. No weight decrease. No nausea. No vomiting. No abdominal discomfort. No constipation. No diarrhea. No depression. No anxiety. PHYSICAL EXAMINATION: GENERAL: General appearance: Pleasant gentleman in no apparent distress. VITAL SIGNS: Stable and afebrile. HEENT: Oral mucosa appears intact. The external ears are normal in appearance. Nares are patent without lesions, exudates, erythema, or inflammation. Tongue is symmetrical. Uvula is midline. NECK AND THYROID: Neck supple without palpable masses. Trachea is midline. No thyromegaly. No carotid bruit or JVD. BREASTS: Normal. Nipples unremarkable. No drainage. No lumps felt on either side. HEART: Normal S1, S2, without significant murmur, rub, or gallop. LUNGS: Clear to auscultation and percussion with good air entry bilaterally. The patient is breathing easily without the use of accessory muscles. Diaphragmatic excursions are intact. ABDOMEN: No costovertebral angle tenderness. Soft. No organomegaly or masses. Nontender. No hernias present. Liver and spleen are not palpable. Has been having diarrhea and nausea. LYMPHATIC: No adenopathy noted in the cervical, supraclavicular, axillary, or inguinal regions. NEUROLGIC: Nonfocal. Oriented to person, place, and time. MENTAL STATUS: Appropriate for mood and affect. PERIPHERAL PULSES: No varicosities. Femoral and pedal pulses are palpable. EXTREMITIES: Without cyanosis, clubbing, or edema. No gross anomalies. LABORATORY DATA: White count of 1.9, hemoglobin of 9.8, hematocrit 29.6, platelet count 113,000 with ANC of 1400. ASSESSMENT: 1. Colitis/diarrhea. 2. Nausea and vomiting, which has improved quite a bit as per the patient. 3. Leukopenia secondary to chemotherapy. 4. Anemia of neoplastic disorder. 5. Metastatic colon cancer. PLAN: We will wait for his overall condition to improve. He is to continue broad spectrum antibiotics and treatment for Crohn's disease, etc. The patient will be started on growth factors and white count will be watched very carefully. Overall, he is doing much better today. Ample time was given to the patient to ask me questions. [place], [place] REPORT OF CONSULTATION NAME: NASREEN RUBIO III UNIT #: [id number] ROOM: 422 DOCTOR: BRIANA CORCORAN MD BIRTHDATE: [birth year] Thanks for consulting and letting me participate in the care of this patient. BRIANA CORCORAN MD CM:CONSTR:REPORT OF CONSULTATION 1552 06/28/17 1614 interface
--- NOTE | ~2017-06-27 | CON ---
[place], [place] REPORT OF CONSULTATION NAME: NASREEN RUBIO III [facility] #: [id number] UNIT #: [id number] ROOM: 422 DOCTOR: JESSICA RAMOSCARLOS BIRTHDATE: [birth year] DOS: 06/27/2017 HISTORY OF PRESENT ILLNESS: The patient is a 37-year-old who unfortunately was found to have a case of colonic carcinoma, status post chemotherapy with metastasis to the liver, presented with diarrhea and segmental colitis based on report CT scan, however, C. diff results came back positive and he has been started on Flagyl IV and vancomycin 250 mg q.i.d. has done the job that extreme diarrhea has responded. Today, he was able to eat solid food. CT scan of the abdomen, right hemicolectomy and involvement of colitis is noticed. His white blood cell initially was 3.2, H and H of 13 and 39, platelets of 163. Lactic acid is 2.0. INR 1.0, comprehensive metabolic panel, electrolyte balance. Liver function test. Normal lipase 174. Troponin within normal limits. CT scan of the abdomen reviewed. PAST MEDICAL HISTORY: Colonic cancer status post right hemicolectomy and diarrhea, C. diff. PAST SURGICAL HISTORY: As identified, lower back, colon resection, right hemicolectomy. SOCIAL HISTORY: Nonsmoker, nonalcohol consumer. FAMILY HISTORY: Noncontributory. ALLERGIES: To no known medications. MEDICATIONS: Medication list reviewed. REVIEW OF SYSTEMS: HEENT: Denies double vision, blurred vision. RESPIRATORY: Denies acute shortness of breath. CARDIOVASCULAR: Denies acute chest pain. DIGESTIVE SYSTEM: Diarrhea. PHYSICAL EXAMINATION: VITAL SIGNS: Stable, frail patient. HEENT: Head normocephalic, nontraumatic. Mouth and buccal mucosa benign. NECK: Supple, no thyromegaly. CHEST: Symmetric anatomy, equal expansion. HEART: Normal sinus rhythm, no gallop, no murmur. ABDOMEN: Soft. No hepato-organomegaly. Scar of surgery was noticed, which is healed 100%. Bowel sounds hyperactive. EXTREMITIES: No cyanosis, no pedal edema. NEUROLOGIC: Alert, oriented to time, place, person. IMPRESSION: History of colonic cancer status post chemotherapy for metastatic lesions to the liver, presently colitis secondary to Clostridium difficile. PLAN AND DISCUSSION: Continuation with Flagyl 500 mg IV q. 8 hours and vancomycin 250 mg q.i.d. p.o. regular diet as tolerated by patient. Workup in [place], [place] REPORT OF CONSULTATION NAME: NASREEN RUBIO III UNIT #: [id number] ROOM: [facility] DOCTOR: CARLOS LOPEZ MD BIRTHDATE: [birth year] progress. CARLOS LOPEZ MD CM:CONSTR:REPORT OF CONSULTATION 1244 06/30/17 2235 interface
--- NOTE | ~2017-06-27 | PR ---
[place], [place] PROGRESS NOTE NAME: NASREEN RUBIO III [facility] #: [id number] UNIT #: [id number] ROOM: 422 DOCTOR: BIRANA CORCORAN MD BIRTHDATE: [birth year] DOS: 06/29/2017 SUBJECTIVE: The patient is doing much better. His diarrhea, resolved. He does not have any nausea, vomiting or any abdominal pain. He is awake, alert and responsive. REVIEW OF SYSTEMS HEENT: No trouble swallowing. No double vision. No loss of vision. No pain. ENT AND RESPIRATORY: No wheeze. No change in voice. No cough. No shortness of breath. No coughing up blood. No epistaxis. CARDIOLOGIC: No chest pain. No dizziness. No irregular heartbeat. No leg edema. No palpitations. No shortness of breath. HEMATOLOGIC AND LYMPH: No past transfusion. No fatigue. No loss of appetite. No easy bruising. GASTROENEROLOGIC: No change in bowel habits. No vomiting blood. No abdominal cramping. No nausea. No vomiting. No diarrhea. No constipation. No blood in stool. MALE REPRODUCTIVE: No testicular pain. No penile discharge. MUSCULOSKELETAL: No back pain. No muscle pain or weakness. No tingling/numbness. UROLOGIC: No pain with urination. No difficulty urinating. No frequent urination. NEUROLOGIC: No burning pain in feet. No trouble with coordination. No loss of consciousness. No headache. No tingling/numbness. No memory loss. PHYSICAL EXAMINATION GENERAL: He is a very pleasant gentleman in no apparent distress. VITAL SIGNS: Stable. HEENT: Normocephalic, atraumatic NECK AND THYROID: Supple. No JVD, thyromegaly, or lymphadenopathy. HEART: Normal S1, S2. Regular rate and rhythm. LUNGS: Clear to auscultation and percussion. ABDOMEN: Soft. Nontender, nondistended. Bowel sounds present. EXTREMITIES: Normal ROM. No clubbing. No edema. LABORATORY DATA: White count 1.6, hemoglobin of 10.8, hematocrit 33.2, MCV 77.9, platelet count of 16,000. ASSESSMENT: 1. Colitis, diarrhea, which is resolving. 2. Metastatic colon cancer, stage IV. 3. Anemia of neoplastic disorder. 4. Leukopenia. PLAN: Overall, he is doing much better. The patient is on growth factors at this point. We will keep a close watch on the counts. Hemoglobin and hematocrit is stable, if it drops, further intervention. In the meantime, continue present management. I had a detailed discussion with the patient about it, seemed to understand it and time was given to the patient to ask me questions. [place], [place] PROGRESS NOTE NAME: NASREEN RUBIO III UNIT #: [id number] ROOM: 422 DOCTOR: BRIANA CORCORAN MD BIRTHDATE: [birth year] BRIANA CORCORAN MD CM:CHINA [id number] BRIANA CORCORAN MD 06/29/17 1638 interface
--- NOTE | ~2017-06-27 | EKG ---
[place], [place] ELECTROCARDIOGRAM REPORT NAME: NASREEN RUBIO III UNIT #: [id number] ROOM: 422 DOCTOR: ZAFAR RAMOS,OLGA BIRTHDATE: [birth year] DOS: 06/27/2017 TIME: 1307 hours. IMPRESSION: 1. Sinus rhythm. 2. Probable left atrial enlargement. 3. Possible right ventricular hypertrophy. 4. Normal QT interval. OLGA STEPHEN MD CM:EKGRPT:ELECTROCARDIOGRAM REPORT 1409 1435 OLGA STEPHEN MD
--- NOTE | ~2017-06-27 | PR ---
[place], [place] PROGRESS NOTE NAME: NASREEN RUBIO III [facility] #: [id number] UNIT #: [id number] ROOM: 422 DOCTOR: BRIANA CORCORAN MD BIRTHDATE: [birth year] DOS: 06/30/2017 SUBJECTIVE: The patient is doing much better. He is feeling much better, did not have any diarrhea or nausea or vomiting. He is awake, alert, responsive. OBJECTIVE: GENERAL: Pleasant gentleman, in no apparent distress. My old male patient. VITAL SIGNS: Blood pressure 110/80, respiration 18, pulse 82, temperature 97.5. LABORATORY DATA: White count 2.0, hemoglobin 11.9, hematocrit 36.9, MCV 79.2, platelet count 167,000. Sodium 141, potassium 4.4, chloride 106, bicarbonate 26, BUN 5 and creatinine is more than 60. ASSESSMENT: 1. Metastatic colon cancer. 2. Colitis, which has resolved. 3. Nausea and vomiting, which has resolved. 4. Leukopenia. 5. Anemia of neoplastic disorder. 6. Clostridium difficile. PLAN: He will continue growth factors. He is overall doing much better, probably he will be going home in a couple of days. He also talked to the Infectious Disease and it is okay to continue chemotherapy, which he will get on Monday. Ample time was given to the patient to ask me questions. The patient will be continued on antibiotic for his C. diff. BRIANA CORCORAN MD CM:PNTRANS 1523 [id number] BRIANA CORCORAN MD 06/30/17 2346 interface
[2017-06-27 12:36] VITALS: BP 108/81
[2017-06-27 13:32] LABS: BASO % 0.6 % (0.0-1.0); EOS % 0.9 % (1.0-4.0); HEMATOCRIT 39.1 % (42.0-52.0); LYMPH # 0.2 10*3/uL (1.3-4.4); LYMPH % 5.3 % (27.0-41.0); MEAN CELL VOLUME 77.6 fl (80.0-94.0); MEAN CORPUSCULAR HGB 25.8 pg (27.0-31.0); MEAN CORPUSCULAR HGB CONC 33.2 g/dl (33.0-37.0); MEAN PLATELET VOLUME 8.6 fl (9.6-12.3); MONO # 0.3 10*3/uL (0.1-1.0); MONO % 9.3 % (3.0-9.0); NEUT # 2.7 10*3/uL (2.3-7.9); NEUT % 83.3 % (47.0-73.0); PLATELET COUNT AUTOMATED 163 10*3/uL (130-400); RED BLOOD COUNT 5.04 10*6/uL (4.50-5.90); RED CELL DISTRI WIDTH 17.5 % (0-14.5); WHITE BLOOD COUNT 3.2 10*3/uL (4.8-10.8)
[2017-06-27 13:45] LABS: ACT PARTIAL THROMBO TIME 30.6 SECONDS (20.8-31.5); INTERNATIONAL NORM RATIO 1.3 (2.0-3.5)
[2017-06-27 13:49] LABS: ALBUMIN 2.9 gm/dl (3.1-4.5); ALKALINE PHOSPHATASE 178 U/L (45-117); BUN 10 mg/dl (7-24); CHLORIDE 95 mmol/L (98-107); LIPASE 174 U/L (73-393); POTASSIUM 3.6 mmol/L (3.5-5.1); SGOT/AST 21 IU/L (3-35); SGPT/ALT 35 U/L (12-78); SODIUM 131 mmol/L (136-145); TOTAL PROTEIN 7.5 gm/dL (6.4-8.2); TROPONIN I < 0.015 ng/ml (<0.045)
[2017-06-27 15:48] LABS: BILIRUBIN NEGATIVE (NEGATIVE); BLOOD NEGATIVE (NEGATIVE); CLARITY CLEAR (CLEAR); COLOR YELLOW (YELLOW); GLUCOSE NEGATIVE (NEGATIVE); KETONE NEGATIVE (NEGATIVE); LEUKO ESTERASE NEGATIVE (NEGATIVE); NITRITE NEGATIVE (NEGATIVE); SPECIFIC GRAVITY <= 1.005 (1.005-1.030); UROBILINOGEN 0.2 E.U./dl (0.2-1.0)
[2017-06-27 15:57] LABS: BACTERIA 1+; RBC 0-2 rbc/hpf (0-2); WBC 0-2 wbc/hpf (0-5)
[2017-06-27 16:00] VITALS: BP 114/79
--- NOTE | 2017-06-27 17:00 | NUR ---
A 37, admitted to , under the services of CHARLIE Pablo DO with a diagnosis of COLITIS. Chief complaint is NAUSEA. Patient arrived via bed from ER. Monitor applied. Initial assessment completed. Vital signs taken and recorded. CHARLIE PABLO DO notified of admission to the unit. Orders received. See assessment for past medical history, medications and allergies. Patient and/or family oriented to unit. [facility] visitation policy reviewed. Clothing/patient valuable form completed. NATIVIDAD FAULKNER
[2017-06-27 20:00] VITALS: BP 104/69
[2017-06-28] VITALS: BP 100/68
--- NOTE | 2017-06-28 01:52 | NUR ---
PT. UP TO BATHROOM. LIQUID BROWN STOOL. C-DIFF SPECIMEN OBTAINED AND SENT TO LAB FOR TESTING.
--- NOTE | 2017-06-28 06:15 | NUR ---
CT SCAN PREP STARTED PER ORDER.
[2017-06-28 06:18] LABS: MEAN CELL VOLUME 78.1 fl (80.0-94.0); MEAN CORPUSCULAR HGB 25.9 pg (27.0-31.0); MEAN CORPUSCULAR HGB CONC 33.1 g/dl (33.0-37.0); RED BLOOD COUNT 3.79 10*6/uL (4.50-5.90); RED CELL DISTRI WIDTH 17.2 % (0-14.5)
[2017-06-28 06:25] LABS: HEMATOCRIT 29.6 % (42.0-52.0); HEMOGLOBIN 9.8 g/dl (14.0-18.0); PLATELET COUNT AUTOMATED 113 10*3/uL (130-400)
[2017-06-28 06:32] LABS: ALBUMIN 2.2 gm/dl (3.1-4.5); CHLORIDE 103 mmol/L (98-107); POTASSIUM 3.6 mmol/L (3.5-5.1); SODIUM 135 mmol/L (136-145)
[2017-06-28 06:39] LABS: ALKALINE PHOSPHATASE 146 U/L (45-117); BUN 7 mg/dl (7-24); CHOLESTEROL 118 mg/dL (<200); CREATININE 0.56 mg/dL (0.70-1.30); FREE T4 1.39 ng/dl (0.76-1.46); HDL CHOLESTEROL 48 mg/dl (40-60); LDL CHOLESTEROL 48 mg/dL (9-159); PHOSPHOROUS 2.2 mg/dL (2.5-4.9); SGOT/AST 18 IU/L (3-35); SGPT/ALT 27 U/L (12-78); THYROID STIM HORMONE (HS) 0.687 uIU/ml (0.358-4.75); TOTAL PROTEIN 5.6 gm/dL (6.4-8.2); TRIGLYCERIDES 110 mg/dl (<150); VLDL CHOLESTEROL 22 mg/dL (6-40)
[2017-06-28 06:41] LABS: INTERNATIONAL NORM RATIO 1.4 (2.0-3.5)
[2017-06-28 06:43] LABS: BASOPHILS 3 % (0-1); TOTAL CELLS COUNTED 100 #CELLS
[2017-06-28 06:44] LABS: PLATELET SUFFICIENCY LOW (NORMAL)
--- NOTE | 2017-06-28 06:45 | NUR ---
DR. OJEDA NOTIFIED OF CRITICAL WBC 1.9. NO NEW ORDERS RECEIVED.
[2017-06-28 06:46] LABS: WHITE BLOOD COUNT 1.9 10*3/uL (4.8-10.8)
[2017-06-28 08:00] VITALS: BP 105/71
[2017-06-28 08:43] LABS: VITAMIN D, 25-HYDROXY 13.3 ng/mL (30-100)
--- NOTE | 2017-06-28 09:00 | NUR ---
case management attempted to visit with patient, patient out of room at this time, will see at a later time
--- NOTE | 2017-06-28 09:02 | NUR ---
PT OFF FLOOR FOR CT ABD/PELVIS
--- NOTE | 2017-06-28 09:17 | NUR ---
PT RETURNS TO FLOOR
--- NOTE | 2017-06-28 11:42 | NUR ---
DR CORCORAN NOTIFIED OF CONSULT. NEW ORDERS RECEIVED
[2017-06-28 12:00] VITALS: BP 116/73
[2017-06-28 16:00] VITALS: BP 115/76
--- NOTE | 2017-06-28 16:43 | NUR ---
Dr aly notified of consult. new orders received.
[2017-06-28 20:00] VITALS: BP 100/68
[2017-06-29] VITALS: BP 96/64
[2017-06-29 06:37] LABS: HEMATOCRIT 33.2 % (42.0-52.0); HEMOGLOBIN 10.8 g/dl (14.0-18.0); MEAN CELL VOLUME 77.9 fl (80.0-94.0); MEAN CORPUSCULAR HGB 25.4 pg (27.0-31.0); MEAN CORPUSCULAR HGB CONC 32.5 g/dl (33.0-37.0); MEAN PLATELET VOLUME 9.1 fl (9.6-12.3); PLATELET COUNT AUTOMATED 116 10*3/uL (130-400); RED BLOOD COUNT 4.26 10*6/uL (4.50-5.90); RED CELL DISTRI WIDTH 17.3 % (0-14.5)
[2017-06-29 06:42] LABS: WHITE BLOOD COUNT 1.6 10*3/uL (4.8-10.8)
[2017-06-29 07:10] LABS: ALBUMIN 2.4 gm/dl (3.1-4.5); BUN 4 mg/dl (7-24); CHLORIDE 106 mmol/L (98-107); POTASSIUM 3.9 mmol/L (3.5-5.1); SODIUM 139 mmol/L (136-145)
[2017-06-29 07:15] LABS: ALKALINE PHOSPHATASE 153 U/L (45-117); CREATININE 0.48 mg/dL (0.70-1.30); SGOT/AST 17 IU/L (3-35); SGPT/ALT 28 U/L (12-78)
[2017-06-29 07:31] LABS: TOTAL CELLS COUNTED 100 #CELLS
[2017-06-29 07:32] LABS: MICROCYTOSIS SLIGHT; PLATELET SUFFICIENCY LOW (NORMAL); POLYCHROMASIA SLIGHT
[2017-06-29 08:00] VITALS: BP 109/82
--- NOTE | 2017-06-29 09:00 | NUR ---
case management visits with patient, patient lives at home, gets around fine, is receiving chemotherapy, patient states he will be going back home when able and denies any home needs
[2017-06-29 12:00] VITALS: BP 114/70
--- NOTE | 2017-06-29 15:55 | NUR ---
Medicated with norco per prn order for complaints of abdominal pain. States that he ate his first meal and states that he may have eaten too much or too fast as he hasn't eaten anything other than liquids in a couple weeks. States he is having cramping sore and spasm like abdominal pains. Rates pain 12/31. Denies nausea or vomiting.
[2017-06-29 16:00] VITALS: BP 101/68
--- NOTE | 2017-06-29 17:00 | NUR ---
States that medication given for pain ealier was effective. Denies pain now.
[2017-06-29 20:00] VITALS: BP 117/76
--- NOTE | 2017-06-29 23:48 | NUR ---
pt. requesting sleeping pill. restoril given per order for insomnia.
[2017-06-30] VITALS: BP 109/78
--- NOTE | 2017-06-30 01:00 | NUR ---
PT. SLEEPING RESTORIL EFFECTIVE.
[2017-06-30 03:49] VITALS: BP 106/80
[2017-06-30 06:12] LABS: HEMATOCRIT 36.9 % (42.0-52.0); HEMOGLOBIN 11.9 g/dl (14.0-18.0); MEAN CELL VOLUME 79.2 fl (80.0-94.0); MEAN CORPUSCULAR HGB 25.5 pg (27.0-31.0); MEAN CORPUSCULAR HGB CONC 32.2 g/dl (33.0-37.0); RED BLOOD COUNT 4.66 10*6/uL (4.50-5.90)
[2017-06-30 06:30] LABS: ALBUMIN 2.6 gm/dl (3.1-4.5); BUN 5 mg/dl (7-24); CHLORIDE 106 mmol/L (98-107); CREATININE 0.68 mg/dL (0.70-1.30); PHOSPHOROUS 1.9 mg/dL (2.5-4.9); POTASSIUM 4.4 mmol/L (3.5-5.1); SGOT/AST 64 IU/L (3-35); SGPT/ALT 70 U/L (12-78); SODIUM 141 mmol/L (136-145)
[2017-06-30 06:32] LABS: ALKALINE PHOSPHATASE 219 U/L (45-117); PLATELET COUNT AUTOMATED 167 10*3/uL (130-400); TOTAL PROTEIN 6.4 gm/dL (6.4-8.2)
[2017-06-30 07:04] LABS: TOTAL CELLS COUNTED 100 #CELLS
[2017-06-30 07:05] LABS: PLATELET SUFFICIENCY NORMAL (NORMAL); POLYCHROMASIA SLIGHT
[2017-06-30 08:03] VITALS: BP 110/80
--- NOTE | 2017-06-30 10:56 | NUR ---
DR. MATOS'S OFFICE NOTIFIED OF CONSULT RE: C DIFF WITTH IMMUNOCOMPROMISE WITH CHEMOTHERAPY.
[2017-06-30 12:00] VITALS: BP 111/76
--- NOTE | 2017-06-30 14:00 | NUR ---
DR. MATOS IN TO SEE PATIENT RE: PLAN OF CARE.
--- NOTE | 2017-06-30 15:40 | NUR ---
MEDICATED WITH PRN PO NORCO FOR HEADACHE.
[2017-06-30 16:00] VITALS: BP 105/66
--- NOTE | 2017-06-30 18:00 | NUR ---
NORCO EFFECTIVE, PER PATIENT.
[2017-06-30 20:00] VITALS: BP 102/78
--- NOTE | 2017-06-30 20:05 | NUR ---
MEDICATED WITH PRN NORCO ORDERED FOR C/O BILATERAL HIP PAIN RATED AN 8/10. PATIENT RESTING QUIETLY IN BED. RESPIRATIONS EASY/REG. PLEASANT/COOPERATIVE WITH CARE. SEE ASSESSMENT. FLUIDS MAINTAINED PER ORDER. CALL LIGHT IS IN REACH.
[2017-07-01] VITALS: BP 105/64
--- NOTE | 2017-07-01 01:32 | NUR ---
PATIENT MEDICATED WITH PRN NORCO ORDERED FOR C/O BILATERAL HIP PAIN RATED AN 8/10
[2017-07-01 06:03] LABS: HEMATOCRIT 33.8 % (42.0-52.0); HEMOGLOBIN 10.6 g/dl (14.0-18.0); MEAN CELL VOLUME 79.5 fl (80.0-94.0); MEAN CORPUSCULAR HGB 24.9 pg (27.0-31.0); MEAN CORPUSCULAR HGB CONC 31.4 g/dl (33.0-37.0); MEAN PLATELET VOLUME 9.5 fl (9.6-12.3); NUCLEATED RED BLOOD CELL 0.1 10*3/uL (0.0-0.0); NUCLEATED RED BLOOD CELL 6.9 % (0.0-0.0); RED BLOOD COUNT 4.25 10*6/uL (4.50-5.90); RED CELL DISTRI WIDTH 19.2 % (0-14.5)
--- NOTE | 2017-07-01 06:27 | NUR ---
DR AGOSTO NOTIFIED OF PATIENTS CRITICAL WBC 1.8. NO NEW ORDERS
[2017-07-01 06:28] LABS: PLATELET COUNT AUTOMATED 100 10*3/uL (130-400)
[2017-07-01 06:50] LABS: ATYPICAL LYMPHS 3 % (0-0); PLATELET SUFFICIENCY LOW (NORMAL); SCHISTOCYTES FEW; TOTAL CELLS COUNTED 100 #CELLS
[2017-07-01 06:51] LABS: MICROCYTOSIS SLIGHT
[2017-07-01 08:00] VITALS: BP 101/67
[2017-07-01 08:04] LABS: WHITE BLOOD COUNT 1.8 10*3/uL (4.8-10.8)
--- NOTE | 2017-07-01 08:08 | NUR ---
PT GIVEN PRN PO NORCO FOR LOW GRADE TEMP OF 100.0 AND BILATERAL HIP/LEG PAIN RATED AT 7/10. WILL MONITOR EFFECTIVENESS.
[2017-07-01 10:34] LABS: ALBUMIN 2.2 gm/dl (3.1-4.5); ALKALINE PHOSPHATASE 190 U/L (45-117); BUN 4 mg/dl (7-24); CHLORIDE 102 mmol/L (98-107); SGOT/AST 84 IU/L (3-35); SGPT/ALT 92 U/L (12-78); SODIUM 137 mmol/L (136-145); TOTAL PROTEIN 4.8 gm/dL (6.4-8.2)
[2017-07-01 10:35] LABS: POTASSIUM 3.2 mmol/L (3.5-5.1)
[2017-07-01 12:00] VITALS: BP 107/68
[2017-07-01] MEDS ORDERED: FLORASTOR250 MG PO (14:05)
[2017-07-01] MEDS ORDERED: VANCOMYCIN250 MG/2.5 PO ×2 (14:05→14:07)
[2017-07-01] MEDS ORDERED: VITAMIN D-32000 UNI1 PO (14:05)
--- NOTE | 2017-07-01 14:26 | NUR ---
Discharge instructions reviewed with patient/family. Patient receptive and verbalizes understanding. Follow-up care arranged. Written instructions given to patient/family. NATIVIDAD FAULKNER
== END 2017-07-01 14:26 | disposition home or self-care (01) | DRG 871 ==
LOC: ED 12:14 → EDHOLD 15:30 → 4E 15:30
PROVIDERS: Emergency Medicine; Internal Medicine; Internal Medicine Hematology & Oncology; Internal Medicine Nephrology; ADMIT Student in an Organized Health Care Education/Training Program
DX: A41.9 Sepsis, unspecified organism (principal); D61.810 Antineoplastic chemotherapy induced pancytopenia; C78.7 Secondary malignant neoplasm of liver and intrahepatic bile duct; E44.0 Moderate protein-calorie malnutrition; A04.72 Enterocolitis due to Clostridium difficile, not specified as recurrent; E87.8 Other disorders of electrolyte and fluid balance, not elsewhere classified; K50.919 Crohn's disease, unspecified, with unspecified complications; C18.9 Malignant neoplasm of colon, unspecified; E87.1 Hypo-osmolality and hyponatremia; Z68.1 Body mass index [BMI] 19.9 or less, adult; E86.0 Dehydration; Z90.49 Acquired absence of other specified parts of digestive tract; Z82.49 Family history of ischemic heart disease and other diseases of the circulatory system; Z83.3 Family history of diabetes mellitus; D63.0 Anemia in neoplastic disease; T45.1X5A Adverse effect of antineoplastic and immunosuppressive drugs, initial encounter; Y92.89 Other specified places as the place of occurrence of the external cause

== ENCOUNTER → 2017-07-09 | Outpatient (CLI) | payer OTHER ==
[~2017-07-09] MED LIST changes: +FLORASTOR250 MG PO; +VANCOMYCIN250 MG/2.5 PO; +VITAMIN D-32000 UNI1 PO
[2017-07-09 17:30] LABS: BASO % 0.5 % (0.0-1.0); EOS % 0.5 % (1.0-4.0); HEMATOCRIT 36.2 % (42.0-52.0); HEMOGLOBIN 11.2 g/dl (14.0-18.0); LYMPH # 0.6 10*3/uL (1.3-4.4); LYMPH % 11.1 % (27.0-41.0); MEAN CELL VOLUME 83.8 fl (80.0-94.0); MEAN CORPUSCULAR HGB 25.9 pg (27.0-31.0); MEAN CORPUSCULAR HGB CONC 30.9 g/dl (33.0-37.0); MEAN PLATELET VOLUME 9.3 fl (9.6-12.3); MONO # 0.7 10*3/uL (0.1-1.0); MONO % 12.6 % (3.0-9.0); NEUT # 4.3 10*3/uL (2.3-7.9); NEUT % 73.6 % (47.0-73.0); PLATELET COUNT AUTOMATED 168 10*3/uL (130-400); RED BLOOD COUNT 4.32 10*6/uL (4.50-5.90); RED CELL DISTRI WIDTH 22.2 % (0-14.5); WHITE BLOOD COUNT 5.8 10*3/uL (4.8-10.8)
[2017-07-09 17:57] LABS: BUN 5 mg/dl (7-24); CREATININE 0.63 mg/dL (0.70-1.30)
== END | disposition home or self-care (01) ==
LOC: LAB 17:10
PROVIDERS: Internal Medicine Hematology & Oncology
DX: C18.3 Malignant neoplasm of hepatic flexure (principal)

== ENCOUNTER → 2017-07-24 | Outpatient (CLI) | payer OTHER ==
[2017-07-24 16:22] LABS: BASO % 0.9 % (0.0-1.0); EOS # 0.2 10*3/uL (0.0-0.4); EOS % 5.2 % (1.0-4.0); HEMOGLOBIN 11.6 g/dl (14.0-18.0); LYMPH # 0.6 10*3/uL (1.3-4.4); LYMPH % 13.6 % (27.0-41.0); MEAN CELL VOLUME 85.6 fl (80.0-94.0); MEAN CORPUSCULAR HGB 26.9 pg (27.0-31.0); MEAN CORPUSCULAR HGB CONC 31.4 g/dl (33.0-37.0); MEAN PLATELET VOLUME 8.4 fl (9.6-12.3); MONO # 0.8 10*3/uL (0.1-1.0); MONO % 18.4 % (3.0-9.0); NEUT # 2.7 10*3/uL (2.3-7.9); NEUT % 61.7 % (47.0-73.0); PLATELET COUNT AUTOMATED 172 10*3/uL (130-400); RED BLOOD COUNT 4.32 10*6/uL (4.50-5.90); RED CELL DISTRI WIDTH 21.1 % (0-14.5); WHITE BLOOD COUNT 4.4 10*3/uL (4.8-10.8)
[2017-07-24 16:36] LABS: BUN 6 mg/dl (7-24); CREATININE 0.68 mg/dL (0.70-1.30)
== END | disposition home or self-care (01) ==
LOC: LAB 16:04
PROVIDERS: Internal Medicine Hematology & Oncology
DX: C18.3 Malignant neoplasm of hepatic flexure (principal)

== ENCOUNTER → 2017-08-20 | Outpatient (CLI) | payer OTHER ==
[2017-08-20 20:03] LABS: BASO # 0.1 10*3/uL (0.0-0.1); BASO % 1.3 % (0.0-1.0); EOS # 0.1 10*3/uL (0.0-0.4); EOS % 2.5 % (1.0-4.0); HEMATOCRIT 40.5 % (42.0-52.0); HEMOGLOBIN 12.7 g/dl (14.0-18.0); LYMPH # 1.1 10*3/uL (1.3-4.4); LYMPH % 23.3 % (27.0-41.0); MEAN CELL VOLUME 85.6 fl (80.0-94.0); MEAN CORPUSCULAR HGB 26.8 pg (27.0-31.0); MEAN CORPUSCULAR HGB CONC 31.4 g/dl (33.0-37.0); MEAN PLATELET VOLUME 8.9 fl (9.6-12.3); MONO # 0.8 10*3/uL (0.1-1.0); NEUT # 2.7 10*3/uL (2.3-7.9); NEUT % 55.7 % (47.0-73.0); PLATELET COUNT AUTOMATED 98 10*3/uL (130-400); RED BLOOD COUNT 4.73 10*6/uL (4.50-5.90); RED CELL DISTRI WIDTH 21.2 % (0-14.5); WHITE BLOOD COUNT 4.8 10*3/uL (4.8-10.8)
[2017-08-20 20:29] LABS: BUN 3 mg/dl (7-24); CREATININE 0.62 mg/dL (0.70-1.30)
== END | disposition home or self-care (01) ==
LOC: LAB 19:40
PROVIDERS: Internal Medicine Hematology & Oncology
DX: C18.3 Malignant neoplasm of hepatic flexure (principal)

== ENCOUNTER → 2017-09-03 | Outpatient (CLI) | payer OTHER ==
[2017-09-03 18:07] LABS: BASO # 0.1 10*3/uL (0.0-0.1); BASO % 1.7 % (0.0-1.0); EOS # 0.2 10*3/uL (0.0-0.4); EOS % 5.4 % (1.0-4.0); HEMATOCRIT 40.2 % (42.0-52.0); HEMOGLOBIN 12.7 g/dl (14.0-18.0); LYMPH # 0.5 10*3/uL (1.3-4.4); LYMPH % 16.5 % (27.0-41.0); MEAN CELL VOLUME 86.5 fl (80.0-94.0); MEAN CORPUSCULAR HGB 27.3 pg (27.0-31.0); MEAN CORPUSCULAR HGB CONC 31.6 g/dl (33.0-37.0); MEAN PLATELET VOLUME 9.5 fl (9.6-12.3); MONO # 0.5 10*3/uL (0.1-1.0); MONO % 16.5 % (3.0-9.0); NEUT # 1.8 10*3/uL (2.3-7.9); NEUT % 59.6 % (47.0-73.0); PLATELET COUNT AUTOMATED 99 10*3/uL (130-400); RED BLOOD COUNT 4.65 10*6/uL (4.50-5.90); RED CELL DISTRI WIDTH 21.5 % (0-14.5)
[2017-09-03 18:32] LABS: BUN 7 mg/dl (7-24); CREATININE 0.58 mg/dL (0.70-1.30)
== END | disposition home or self-care (01) ==
LOC: LAB 17:45
PROVIDERS: Internal Medicine Hematology & Oncology
DX: C18.3 Malignant neoplasm of hepatic flexure (principal)

== ENCOUNTER → 2017-09-17 | Outpatient (CLI) | payer OTHER ==
[2017-09-17 20:02] LABS: HEMATOCRIT 37.5 % (42.0-52.0); HEMOGLOBIN 11.9 g/dl (14.0-18.0); MEAN CELL VOLUME 88.7 fl (80.0-94.0); MEAN CORPUSCULAR HGB 28.1 pg (27.0-31.0); MEAN CORPUSCULAR HGB CONC 31.7 g/dl (33.0-37.0); MEAN PLATELET VOLUME 8.3 fl (9.6-12.3); PLATELET COUNT AUTOMATED 69 10*3/uL (130-400); RED BLOOD COUNT 4.23 10*6/uL (4.50-5.90); RED CELL DISTRI WIDTH 20.7 % (0-14.5)
[2017-09-17 20:14] LABS: BUN 6 mg/dl (7-24); CREATININE 0.69 mg/dL (0.70-1.30)
[2017-09-17 20:27] LABS: BASOPHILS 3 % (0-1); PLATELET SUFFICIENCY LOW (NORMAL); TOTAL CELLS COUNTED 100 #CELLS
[2017-09-17 20:28] LABS: BURR CELLS FEW; OVALOCYTES FEW
== END | disposition home or self-care (01) ==
LOC: LAB 19:44
PROVIDERS: Internal Medicine Hematology & Oncology
DX: C18.3 Malignant neoplasm of hepatic flexure (principal)

== ENCOUNTER → 2017-10-01 | Outpatient (CLI) | payer OTHER ==
[2017-10-01 18:41] LABS: BASO % 0.8 % (0.0-1.0); EOS # 0.2 10*3/uL (0.0-0.4); EOS % 3.9 % (1.0-4.0); HEMOGLOBIN 13.6 g/dl (14.0-18.0); LYMPH # 0.4 10*3/uL (1.3-4.4); LYMPH % 8.4 % (27.0-41.0); MEAN CELL VOLUME 88.8 fl (80.0-94.0); MEAN CORPUSCULAR HGB 28.8 pg (27.0-31.0); MEAN CORPUSCULAR HGB CONC 32.4 g/dl (33.0-37.0); MEAN PLATELET VOLUME 10.1 fl (9.6-12.3); MONO # 0.5 10*3/uL (0.1-1.0); MONO % 11.1 % (3.0-9.0); NEUT # 3.7 10*3/uL (2.3-7.9); NEUT % 75.6 % (47.0-73.0); PLATELET COUNT AUTOMATED 114 10*3/uL (130-400); RED BLOOD COUNT 4.73 10*6/uL (4.50-5.90); RED CELL DISTRI WIDTH 21.1 % (0-14.5); WHITE BLOOD COUNT 4.9 10*3/uL (4.8-10.8)
[2017-10-01 18:59] LABS: BUN 5 mg/dl (7-24); CREATININE 0.54 mg/dL (0.70-1.30)
== END | disposition home or self-care (01) ==
LOC: LAB 18:19
PROVIDERS: Internal Medicine Hematology & Oncology
DX: C18.3 Malignant neoplasm of hepatic flexure (principal)

== ENCOUNTER → 2017-10-10 | Outpatient (CLI) | payer OTHER | END | disposition home or self-care (01) | LOC: CT 11:00 | DX: C18.3 Malignant neoplasm of hepatic flexure (principal); Z90.49 Acquired absence of other specified parts of digestive tract ==

== ENCOUNTER → 2017-10-15 | Outpatient (CLI) | payer OTHER ==
[2017-10-15 19:56] LABS: BASO % 1.4 % (0.0-1.0); EOS # 0.2 10*3/uL (0.0-0.4); EOS % 5.6 % (1.0-4.0); HEMATOCRIT 39.7 % (42.0-52.0); LYMPH # 0.3 10*3/uL (1.3-4.4); LYMPH % 10.4 % (27.0-41.0); MEAN CORPUSCULAR HGB 28.8 pg (27.0-31.0); MEAN CORPUSCULAR HGB CONC 32.7 g/dl (33.0-37.0); MEAN PLATELET VOLUME 8.3 fl (9.6-12.3); MONO # 0.5 10*3/uL (0.1-1.0); MONO % 16.7 % (3.0-9.0); NEUT # 1.9 10*3/uL (2.3-7.9); NEUT % 65.9 % (47.0-73.0); PLATELET COUNT AUTOMATED 52 10*3/uL (130-400); RED BLOOD COUNT 4.51 10*6/uL (4.50-5.90); RED CELL DISTRI WIDTH 19.5 % (0-14.5); WHITE BLOOD COUNT 2.9 10*3/uL (4.8-10.8)
[2017-10-15 20:08] LABS: BUN 2 mg/dl (7-24); CREATININE 0.59 mg/dL (0.70-1.30)
== END | disposition home or self-care (01) ==
LOC: LAB 19:27
PROVIDERS: Internal Medicine Hematology & Oncology
DX: C18.3 Malignant neoplasm of hepatic flexure (principal)

== ENCOUNTER → 2017-10-29 | Outpatient (CLI) | payer OTHER ==
[2017-10-29 17:45] LABS: HEMATOCRIT 40.2 % (42.0-52.0); HEMOGLOBIN 13.2 g/dl (14.0-18.0); MEAN CELL VOLUME 87.6 fl (80.0-94.0); MEAN CORPUSCULAR HGB 28.8 pg (27.0-31.0); MEAN CORPUSCULAR HGB CONC 32.8 g/dl (33.0-37.0); MEAN PLATELET VOLUME 9.5 fl (9.6-12.3); PLATELET COUNT AUTOMATED 58 10*3/uL (130-400); RED BLOOD COUNT 4.59 10*6/uL (4.50-5.90); RED CELL DISTRI WIDTH 19.4 % (0-14.5); WHITE BLOOD COUNT 2.6 10*3/uL (4.8-10.8)
[2017-10-29 18:03] LABS: BUN 3 mg/dl (7-24); CREATININE 0.52 mg/dL (0.70-1.30)
[2017-10-29 18:09] LABS: BASOPHILS 2 % (0-1); TOTAL CELLS COUNTED 100 #CELLS
[2017-10-29 18:14] LABS: PLATELET SUFFICIENCY LOW (NORMAL)
[2017-10-29 18:15] LABS: SCHISTOCYTES FEW
== END | disposition home or self-care (01) ==
LOC: LAB 17:21
PROVIDERS: Internal Medicine Hematology & Oncology
DX: C18.3 Malignant neoplasm of hepatic flexure (principal); R79.89 Other specified abnormal findings of blood chemistry

== ENCOUNTER → 2017-11-12 | Outpatient (CLI) | payer OTHER ==
[2017-11-12 18:32] LABS: BASO % 1.4 % (0.0-1.0); EOS # 0.2 10*3/uL (0.0-0.4); EOS % 6.2 % (1.0-4.0); HEMATOCRIT 40.1 % (42.0-52.0); HEMOGLOBIN 13.1 g/dl (14.0-18.0); LYMPH # 0.4 10*3/uL (1.3-4.4); MEAN CELL VOLUME 89.3 fl (80.0-94.0); MEAN CORPUSCULAR HGB 29.2 pg (27.0-31.0); MEAN CORPUSCULAR HGB CONC 32.7 g/dl (33.0-37.0); MEAN PLATELET VOLUME 8.6 fl (9.6-12.3); MONO # 0.4 10*3/uL (0.1-1.0); NEUT # 1.8 10*3/uL (2.3-7.9); NEUT % 66.4 % (47.0-73.0); PLATELET COUNT AUTOMATED 60 10*3/uL (130-400); RED BLOOD COUNT 4.49 10*6/uL (4.50-5.90); RED CELL DISTRI WIDTH 19.5 % (0-14.5); WHITE BLOOD COUNT 2.8 10*3/uL (4.8-10.8)
[2017-11-12 18:43] LABS: BUN 3 mg/dl (7-24); CREATININE 0.56 mg/dL (0.70-1.30)
== END | disposition home or self-care (01) ==
LOC: LAB 18:09
PROVIDERS: Internal Medicine Hematology & Oncology
DX: C18.3 Malignant neoplasm of hepatic flexure (principal)

== ENCOUNTER 2017-11-20 09:46 | Emergency (ER) | payer OTHER ==
[~2017-11-20] VITALS: Ht 170.1 cm; Wt 49.9 kg
[2017-11-20 10:23] LABS: HEMATOCRIT 38.7 % (42.0-52.0); HEMOGLOBIN 13.3 g/dl (14.0-18.0); MEAN CELL VOLUME 86.6 fl (80.0-94.0); MEAN CORPUSCULAR HGB 29.8 pg (27.0-31.0); MEAN CORPUSCULAR HGB CONC 34.4 g/dl (33.0-37.0); MEAN PLATELET VOLUME 9.6 fl (9.6-12.3); PLATELET COUNT AUTOMATED 55 10*3/uL (130-400); RED BLOOD COUNT 4.47 10*6/uL (4.50-5.90); WHITE BLOOD COUNT 6.1 10*3/uL (4.8-10.8)
[2017-11-20 10:30] LABS: ACT PARTIAL THROMBO TIME 33.3 SECONDS (20.8-31.5); INTERNATIONAL NORM RATIO 1.2 (2.0-3.5)
[2017-11-20 10:37] LABS: ALBUMIN 2.9 gm/dl (3.1-4.5); ALKALINE PHOSPHATASE 238 U/L (45-117); BUN 7 mg/dl (7-24); CHLORIDE 100 mmol/L (98-107); CREATININE 0.77 mg/dL (0.70-1.30); SGOT/AST 53 IU/L (3-35); SGPT/ALT 59 U/L (12-78); SODIUM 132 mmol/L (136-145); TOTAL PROTEIN 6.1 gm/dL (6.4-8.2)
[2017-11-20 10:41] LABS: PLATELET SUFFICIENCY NORMAL (NORMAL); TOTAL CELLS COUNTED 100 #CELLS; TROPONIN I < 0.015 ng/ml (<0.045)
[2017-11-20] MEDS ORDERED: PREDNISONE10 MG PO (13:43)
[2017-11-20] MEDS ORDERED: CLARITIN10 MG PO (13:43)
[2017-11-20] MEDS ORDERED: FLONASE ALLERG9.9 ML NAS (13:44)
== END 2017-11-20 14:00 | disposition home or self-care (01) ==
LOC: ED 09:46
PROVIDERS: Nurse Practitioner Family
DX: R51 Headache (principal)

== ENCOUNTER → 2017-11-26 | Outpatient (CLI) | payer OTHER ==
[~2017-11-26] MED LIST changes: +CLARITIN10 MG PO; +FLONASE ALLERG9.9 ML NAS; +PREDNISONE10 MG PO
[2017-11-26 17:34] LABS: BASO % 0.2 % (0.0-1.0); HEMATOCRIT 37.8 % (42.0-52.0); HEMOGLOBIN 12.8 g/dl (14.0-18.0); LYMPH # 0.5 10*3/uL (1.3-4.4); LYMPH % 10.5 % (27.0-41.0); MEAN CELL VOLUME 88.7 fl (80.0-94.0); MEAN CORPUSCULAR HGB CONC 33.9 g/dl (33.0-37.0); MONO # 0.5 10*3/uL (0.1-1.0); MONO % 11.4 % (3.0-9.0); NEUT # 3.5 10*3/uL (2.3-7.9); NEUT % 77.7 % (47.0-73.0); PLATELET COUNT AUTOMATED 90 10*3/uL (130-400); RED BLOOD COUNT 4.26 10*6/uL (4.50-5.90); WHITE BLOOD COUNT 4.6 10*3/uL (4.8-10.8)
[2017-11-26 17:45] LABS: BUN 3 mg/dl (7-24)
== END | disposition home or self-care (01) ==
LOC: LAB 17:14
PROVIDERS: Internal Medicine Hematology & Oncology
DX: C18.3 Malignant neoplasm of hepatic flexure (principal)

== ENCOUNTER → 2017-12-18 | Outpatient (CLI) | payer OTHER ==
[2017-12-18 19:20] LABS: BASO % 0.6 % (0.0-1.0); EOS # 0.2 10*3/uL (0.0-0.4); EOS % 3.1 % (1.0-4.0); HEMATOCRIT 39.6 % (42.0-52.0); HEMOGLOBIN 12.5 g/dl (14.0-18.0); LYMPH # 0.5 10*3/uL (1.3-4.4); LYMPH % 10.3 % (27.0-41.0); MEAN CELL VOLUME 93.8 fl (80.0-94.0); MEAN CORPUSCULAR HGB 29.6 pg (27.0-31.0); MEAN CORPUSCULAR HGB CONC 31.6 g/dl (33.0-37.0); MEAN PLATELET VOLUME 7.6 fl (9.6-12.3); MONO # 0.6 10*3/uL (0.1-1.0); MONO % 11.5 % (3.0-9.0); NEUT # 3.6 10*3/uL (2.3-7.9); NEUT % 74.3 % (47.0-73.0); PLATELET COUNT AUTOMATED 75 10*3/uL (130-400); RED BLOOD COUNT 4.22 10*6/uL (4.50-5.90); RED CELL DISTRI WIDTH 18.2 % (0-14.5); WHITE BLOOD COUNT 4.9 10*3/uL (4.8-10.8)
[2017-12-18 19:38] LABS: BUN 4 mg/dl (7-24); CREATININE 0.54 mg/dL (0.70-1.30)
== END | disposition home or self-care (01) ==
LOC: LAB 19:03
PROVIDERS: Internal Medicine Hematology & Oncology
DX: C18.3 Malignant neoplasm of hepatic flexure (principal)

== ENCOUNTER → 2018-01-01 | Outpatient (CLI) | payer OTHER ==
[~2018-01-01] MED LIST changes: +FLAGYL500 MG PO
[2018-01-01 19:44] LABS: HEMATOCRIT 38.6 % (42.0-52.0); HEMOGLOBIN 12.8 g/dl (14.0-18.0); MEAN CELL VOLUME 90.6 fl (80.0-94.0); MEAN CORPUSCULAR HGB CONC 33.2 g/dl (33.0-37.0); MEAN PLATELET VOLUME 9.8 fl (9.6-12.3); PLATELET COUNT AUTOMATED 52 10*3/uL (130-400); RED BLOOD COUNT 4.26 10*6/uL (4.50-5.90); RED CELL DISTRI WIDTH 17.1 % (0-14.5); WHITE BLOOD COUNT 3.3 10*3/uL (4.8-10.8)
[2018-01-01 19:59] LABS: BUN 4 mg/dl (7-24)
[2018-01-01 20:09] LABS: PLATELET SUFFICIENCY LOW (NORMAL); TOTAL CELLS COUNTED 100 #CELLS
== END | disposition home or self-care (01) ==
LOC: LAB 18:39
PROVIDERS: Internal Medicine Hematology & Oncology
DX: C18.3 Malignant neoplasm of hepatic flexure (principal)

== ENCOUNTER → 2018-01-14 | Outpatient (CLI) | payer OTHER ==
[2018-01-14 19:01] LABS: EOS # 0.1 10*3/uL (0.0-0.4); EOS % 4.3 % (1.0-4.0); HEMATOCRIT 34.5 % (42.0-52.0); HEMOGLOBIN 11.4 g/dl (14.0-18.0); LYMPH # 0.4 10*3/uL (1.3-4.4); LYMPH % 13.3 % (27.0-41.0); MEAN CORPUSCULAR HGB 30.4 pg (27.0-31.0); MEAN PLATELET VOLUME 8.7 fl (9.6-12.3); MONO # 0.5 10*3/uL (0.1-1.0); MONO % 16.9 % (3.0-9.0); NEUT # 1.9 10*3/uL (2.3-7.9); NEUT % 64.2 % (47.0-73.0); RED BLOOD COUNT 3.75 10*6/uL (4.50-5.90)
[2018-01-14 19:04] LABS: PLATELET COUNT AUTOMATED 52 10*3/uL (130-400)
[2018-01-14 19:14] LABS: BUN 3 mg/dl (7-24); CREATININE 0.57 mg/dL (0.70-1.30)
== END | disposition home or self-care (01) ==
LOC: LAB 18:25
PROVIDERS: Internal Medicine Hematology & Oncology
DX: C18.3 Malignant neoplasm of hepatic flexure (principal)

== ENCOUNTER 2018-01-25 15:35 | Inpatient (IN) | payer OTHER ==
[~2018-01-25] VITALS: Ht 170.2 cm; Wt 56.5 kg
--- NOTE | ~2018-01-25 | O ---
[place], [place] OPERATIVE NOTE NAME: NASREEN RUBIO III [facility] #: [id number] UNIT #: [id number] ROOM: 406 DOCTOR: JESSICA RAMOSCARLOS BIRTHDATE: [birth year] DOS: 01/26/2018 GASTROENDOSCOPIC REPORT INDICATIONS: The patient is a 37-year-old who has presented with multiple medical issues. This patient is known with adenocarcinoma of the colon, nausea, epigastric distress, abdominal pain, complex of GI symptomatology. He is status post chemotherapy. No rapid neuropathy. Dr. Dalal manages his chemo. He is status post partial colectomy. At the time of admission, his lactic acid was 2.8. His BUN and creatinine is 2 and 0.6, normal electrolyte balance. His liver function tests, GOT and GPT of 79 and 62, alkaline phosphatase 250. Amylase and lipase are within normal limits. White blood cell was 3, H and H of 12 and 38, platelet count of 72. Lactic acid improved. CT scan of the abdomen and pelvis was obtained, suspected some ascites and meanwhile stable lesion compared to treat in 09/2017 without definitive new lesions in the liver, hepatic steatosis, all has been recognized. Sonogram of the abdomen did not show ascites of significance. Diagnostic fluid was removed. His ova and parasites, C. diff was negative. Comprehensive metabolic panel was essentially normal except for slight bilirubin elevation again which is unknown. He has complaints of some blood per rectum and diarrhea and some indigestion and therefore we are involved with management. 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 PAST SURGICAL HISTORY: Exploratory laparotomy, right hemicolectomy, back surgery. SOCIAL HISTORY: Nonsmoker, nonalcohol consumer. FAMILY HISTORY: Noncontributory. ALLERGIES: None. REVIEW OF SYSTEMS: HEENT: Denies double vision, blurred vision. RESPIRATORY: Shortness of breath. CARDIOVASCULAR: Denies chest pain. DIGESTIVE SYSTEM: Some nausea, dyspepsia, diarrhea, some blood in stool. PHYSICAL EXAMINATION: GENERAL: Frail patient. VITAL SIGNS: Stable. HEENT: Head normocephalic, nontraumatic. Mouth and buccal mucosa benign. NECK: Supple, no thyromegaly, no cervical lymphadenopathy. CHEST: Symmetric anatomy, equal expansion. No wheeze, no rhonchi. HEART: Normal sinus rhythm, no gallop, no murmur. ABDOMEN: Scars of surgery and the incisional hernias were noticed. Bowel sounds present. EXTREMITIES: No cyanosis, no pedal edema. [place], [place] OPERATIVE NOTE NAME: NASREEN RUBIO III UNIT #: [id number] ROOM: 406 DOCTOR: CARLOS LOPEZ MD BIRTHDATE: [birth year] NEUROLOGICAL: Alert, oriented to time, place, person. IMPRESSION: Nausea, epigastric distress and diarrhea, ruling out a viral gastroenteritis, history of colonic cancer, status post right hemicolectomy, status post multi lesions to the liver, status post chemotherapy. Other adjunctive diagnoses as outlined above. PLAN AND DISCUSSION: We are going to organize EGD and colonoscopy in view of colonic CA, history metastasis liver lesions. Thank you very much indeed. Other adjunctive diagnoses as outlined in past medical and surgical history. GASTROENDOSCOPIC REPORT The patient with a history of nausea, epigastric distress, some blood in the stool, diarrhea, history of colonic adenocarcinoma, status post chemoradiation therapy. PROCEDURE: Today's part of investigation is panendoscopy with colonoscopy. PREMEDICATION: Propofol. SCOPE: Olympus forward-viewing gastroscope Q10 video. REPORT: After putting the patient in left lateral position and application of lubricant to the scope, the scope was introduced. Thereafter, under direct visualization, advanced through the length of esophagus without difficulty. Gastritis was noticed. Duodenal bulb, second and third part within normal limits. Antral biopsy obtained. The patient extubated, tolerated procedure well. IMPRESSION: Gastritis, status post biopsy. PLAN AND DISCUSSION: I am going to proceed with pantoprazole. Further management of the above, we will go ahead with colonoscopy today. GASTROENDOSCOPIC REPORT The patient has presented with diarrhea, history of adenocarcinoma of colon, status post chemoradiation therapy, status post right hemicolectomy. Today's procedure part of investigation is colonoscopy. PREMEDICATION: Propofol. SCOPE: Olympus folding colonoscope 10L video. [place], [place] OPERATIVE NOTE NAME: NASREEN RUBIO III UNIT #: [id number] ROOM: 406 DOCTOR: CARLOS LOPEZ MD BIRTHDATE: [birth year] REPORT: After putting the patient in left lateral position and application of lubricant to the scope, the scope was introduced. Thereafter, under direct visualization, advanced through the length of sigmoid, left colon and transverse colon. There was no evidence of blood. Mucosa was in general edematous. I did not want to take a deep biopsy of the colon because of the thrombocytopenia. I did not see any aggressive problem to be concerned about. The patient extubated, tolerated procedure well. IMPRESSION: Normal colonoscopic evaluation. Otherwise, status post right hemicolectomy for adenocarcinoma of the colon, status post radiation and chemotherapy. PLAN: Conservative management and as far as Oncology is concerned, Dr. Llamas would decide regarding the PET scan on followup thereafter. CARLOS LOPEZ MD CM:OPRECORD:OPERATIVE NOTE [id number] CARLOS LOPEZ MD 01/26/18 1835 interface
[~2018-01-25 15:35] MED LIST changes: -FLAGYL500 MG PO
[2018-01-25 15:36] VITALS: BP 102/69
[2018-01-25 16:23] LABS: BASO % 0.5 % (0.0-1.0); EOS # 0.1 10*3/uL (0.0-0.4); EOS % 1.6 % (1.0-4.0); HEMATOCRIT 38.5 % (42.0-52.0); HEMOGLOBIN 12.7 g/dl (14.0-18.0); LYMPH # 0.3 10*3/uL (1.3-4.4); LYMPH % 7.9 % (27.0-41.0); MEAN CELL VOLUME 90.4 fl (80.0-94.0); MEAN CORPUSCULAR HGB 29.8 pg (27.0-31.0); MEAN PLATELET VOLUME 10.7 fl (9.6-12.3); MONO # 0.6 10*3/uL (0.1-1.0); NEUT # 2.7 10*3/uL (2.3-7.9); NEUT % 74.7 % (47.0-73.0); PLATELET COUNT AUTOMATED 72 10*3/uL (130-400); RED BLOOD COUNT 4.26 10*6/uL (4.50-5.90); RED CELL DISTRI WIDTH 18.2 % (0-14.5); WHITE BLOOD COUNT 3.7 10*3/uL (4.8-10.8)
[2018-01-25 16:39] LABS: ALBUMIN 3.1 gm/dl (3.1-4.5); ALKALINE PHOSPHATASE 250 U/L (45-117); BUN 2 mg/dl (7-24); CHLORIDE 107 mmol/L (98-107); CREATININE 0.55 mg/dL (0.70-1.30); LIPASE 178 U/L (73-393); POTASSIUM 4.3 mmol/L (3.5-5.1); SGOT/AST 79 IU/L (3-35); SGPT/ALT 62 U/L (12-78); SODIUM 143 mmol/L (136-145)
[2018-01-25 17:54] LABS: BILIRUBIN NEGATIVE (NEGATIVE); BLOOD NEGATIVE (NEGATIVE); CLARITY CLEAR (CLEAR); COLOR YELLOW (YELLOW); GLUCOSE NEGATIVE (NEGATIVE); KETONE NEGATIVE (NEGATIVE); LEUKO ESTERASE NEGATIVE (NEGATIVE); NITRITE NEGATIVE (NEGATIVE); SPECIFIC GRAVITY <= 1.005 (1.005-1.030); UROBILINOGEN 0.2 E.U./dl (0.2-1.0)
[2018-01-25 18:07] LABS: BACTERIA TRACE; EPITHELIAL CELLS 0-2
[2018-01-25 19:10] VITALS: BP 132/82
[2018-01-25 21:21] VITALS: BP 113/75
[2018-01-25 21:45] VITALS: BP 113/75
[2018-01-26] VITALS (8 sets, daily range): BP systolic 86–124; BP diastolic 41–83
[2018-01-26 06:15] LABS: BASO % 0.8 % (0.0-1.0); EOS # 0.1 10*3/uL (0.0-0.4); EOS % 2.6 % (1.0-4.0); HEMATOCRIT 35.3 % (42.0-52.0); HEMOGLOBIN 11.7 g/dl (14.0-18.0); LYMPH # 0.3 10*3/uL (1.3-4.4); LYMPH % 7.3 % (27.0-41.0); MEAN CELL VOLUME 91.2 fl (80.0-94.0); MEAN CORPUSCULAR HGB 30.2 pg (27.0-31.0); MEAN CORPUSCULAR HGB CONC 33.1 g/dl (33.0-37.0); MEAN PLATELET VOLUME 9.9 fl (9.6-12.3); MONO # 0.6 10*3/uL (0.1-1.0); MONO % 14.7 % (3.0-9.0); NEUT # 2.8 10*3/uL (2.3-7.9); NEUT % 74.3 % (47.0-73.0); PLATELET COUNT AUTOMATED 63 10*3/uL (130-400); RED BLOOD COUNT 3.87 10*6/uL (4.50-5.90); RED CELL DISTRI WIDTH 18.4 % (0-14.5); WHITE BLOOD COUNT 3.8 10*3/uL (4.8-10.8)
[2018-01-26 06:30] LABS: ACT PARTIAL THROMBO TIME 32.3 SECONDS (20.8-31.5); INTERNATIONAL NORM RATIO 1.2 (2.0-3.5)
[2018-01-26 06:53] LABS: ALBUMIN 2.7 gm/dl (3.1-4.5); BUN 3 mg/dl (7-24); CHLORIDE 110 mmol/L (98-107); CHOLESTEROL 119 mg/dL (<200); CREATININE 0.54 mg/dL (0.70-1.30); POTASSIUM 3.7 mmol/L (3.5-5.1); SGOT/AST 62 IU/L (3-35); SGPT/ALT 53 U/L (12-78); SODIUM 145 mmol/L (136-145); TOTAL PROTEIN 5.4 gm/dL (6.4-8.2); TRIGLYCERIDES 71 mg/dl (<150); VLDL CHOLESTEROL 14 mg/dL (6-40)
[2018-01-26 07:00] LABS: ALKALINE PHOSPHATASE 212 U/L (45-117); FREE T4 0.92 ng/dl (0.76-1.46); HDL CHOLESTEROL 53 mg/dl (40-60); LDL CHOLESTEROL 52 mg/dL (9-159); THYROID STIM HORMONE (HS) 0.863 uIU/ml (0.358-4.75)
[2018-01-26 08:17] LABS: VITAMIN D, 25-HYDROXY 24.4 ng/mL (30-100)
[2018-01-27] VITALS: BP 100/70
[2018-01-27 07:03] LABS: BASO % 1.1 % (0.0-1.0); EOS # 0.1 10*3/uL (0.0-0.4); EOS % 3.3 % (1.0-4.0); HEMATOCRIT 35.7 % (42.0-52.0); HEMOGLOBIN 11.5 g/dl (14.0-18.0); LYMPH # 0.4 10*3/uL (1.3-4.4); LYMPH % 13.9 % (27.0-41.0); MEAN CELL VOLUME 91.3 fl (80.0-94.0); MEAN CORPUSCULAR HGB 29.4 pg (27.0-31.0); MEAN CORPUSCULAR HGB CONC 32.2 g/dl (33.0-37.0); MEAN PLATELET VOLUME 11.1 fl (9.6-12.3); MONO # 0.4 10*3/uL (0.1-1.0); MONO % 14.2 % (3.0-9.0); NEUT # 1.8 10*3/uL (2.3-7.9); NEUT % 66.8 % (47.0-73.0); PLATELET COUNT AUTOMATED 62 10*3/uL (130-400); RED BLOOD COUNT 3.91 10*6/uL (4.50-5.90); RED CELL DISTRI WIDTH 17.9 % (0-14.5); WHITE BLOOD COUNT 2.7 10*3/uL (4.8-10.8)
[2018-01-27 07:25] LABS: ALBUMIN 2.6 gm/dl (3.1-4.5); ALKALINE PHOSPHATASE 222 U/L (45-117); BUN 3 mg/dl (7-24); CHLORIDE 110 mmol/L (98-107); CREATININE 0.46 mg/dL (0.70-1.30); POTASSIUM 3.7 mmol/L (3.5-5.1); SGOT/AST 55 IU/L (3-35); SGPT/ALT 46 U/L (12-78); SODIUM 145 mmol/L (136-145)
[2018-01-27 07:45] VITALS: BP 116/73
[2018-01-27 12:00] VITALS: BP 114/74
[2018-01-27] MEDS ORDERED: FLAGYL500 MG PO (13:01)
== END 2018-01-27 13:45 | disposition home or self-care (01) | DRG 871 ==
LOC: ED 15:35 → 4E 21:01 → EDHOLD 21:01 → 4E 21:16
PROVIDERS: Family Medicine; Internal Medicine; Physician Assistant
PROC: 0DB68ZX Excision of Stomach, Via Natural or Artificial Opening Endoscopic, Diagnostic (ICD-10-PCS; principal; 2018-01-26)
PROC: 0DBE8ZX Excision of Large Intestine, Via Natural or Artificial Opening Endoscopic, Diagnostic (ICD-10-PCS; 2018-01-26)
PROC: 0W9G3ZZ Drainage of Peritoneal Cavity, Percutaneous Approach (ICD-10-PCS; 2018-01-26)
DX: A41.9 Sepsis, unspecified organism (principal); D61.810 Antineoplastic chemotherapy induced pancytopenia; R18.0 Malignant ascites; E43 Unspecified severe protein-calorie malnutrition; D68.9 Coagulation defect, unspecified; C78.7 Secondary malignant neoplasm of liver and intrahepatic bile duct; K50.90 Crohn's disease, unspecified, without complications; K92.2 Gastrointestinal hemorrhage, unspecified; C18.9 Malignant neoplasm of colon, unspecified; R17 Unspecified jaundice; Z68.1 Body mass index [BMI] 19.9 or less, adult; R65.20 Severe sepsis without septic shock; K52.9 Noninfective gastroenteritis and colitis, unspecified; D64.9 Anemia, unspecified; R74.0 Nonspecific elevation of levels of transaminase and lactic acid dehydrogenase [LDH]; R74.8 Abnormal levels of other serum enzymes; J30.2 Other seasonal allergic rhinitis; E55.9 Vitamin D deficiency, unspecified; R16.1 Splenomegaly, not elsewhere classified; R10.13 Epigastric pain; R73.03 Prediabetes; Z95.828 Presence of other vascular implants and grafts; Z90.49 Acquired absence of other specified parts of digestive tract; Z83.3 Family history of diabetes mellitus; Z82.49 Family history of ischemic heart disease and other diseases of the circulatory system; Z92.3 Personal history of irradiation; Z92.21 Personal history of antineoplastic chemotherapy

== ENCOUNTER → 2018-02-13 | Outpatient (CLI) | payer OTHER ==
[~2018-02-13] MED LIST changes: +FLAGYL500 MG PO
[2018-02-13 16:42] LABS: BASO % 1.1 % (0.0-1.0); EOS # 0.2 10*3/uL (0.0-0.4); EOS % 8.4 % (1.0-4.0); HEMATOCRIT 36.3 % (42.0-52.0); HEMOGLOBIN 12.1 g/dl (14.0-18.0); LYMPH # 0.4 10*3/uL (1.3-4.4); LYMPH % 13.1 % (27.0-41.0); MEAN CELL VOLUME 89.4 fl (80.0-94.0); MEAN CORPUSCULAR HGB 29.8 pg (27.0-31.0); MEAN CORPUSCULAR HGB CONC 33.3 g/dl (33.0-37.0); MEAN PLATELET VOLUME 8.9 fl (9.6-12.3); MONO # 0.5 10*3/uL (0.1-1.0); MONO % 16.8 % (3.0-9.0); NEUT # 1.7 10*3/uL (2.3-7.9); NEUT % 60.6 % (47.0-73.0); PLATELET COUNT AUTOMATED 52 10*3/uL (130-400); RED BLOOD COUNT 4.06 10*6/uL (4.50-5.90); RED CELL DISTRI WIDTH 17.6 % (0-14.5); WHITE BLOOD COUNT 2.7 10*3/uL (4.8-10.8)
[2018-02-13 16:56] LABS: ALBUMIN 2.9 gm/dl (3.1-4.5); ALKALINE PHOSPHATASE 177 U/L (45-117); BUN 2 mg/dl (7-24); CHLORIDE 106 mmol/L (98-107); CREATININE 0.61 mg/dL (0.70-1.30); PHOSPHOROUS 3.3 mg/dL (2.5-4.9); POTASSIUM 3.6 mmol/L (3.5-5.1); SGOT/AST 61 IU/L (3-35); SGPT/ALT 40 U/L (12-78); SODIUM 140 mmol/L (136-145); TOTAL PROTEIN 5.5 gm/dL (6.4-8.2)
== END | disposition home or self-care (01) ==
LOC: LAB 16:26
PROVIDERS: Internal Medicine Hematology & Oncology
DX: C18.3 Malignant neoplasm of hepatic flexure (principal); C77.2 Secondary and unspecified malignant neoplasm of intra-abdominal lymph nodes; C78.7 Secondary malignant neoplasm of liver and intrahepatic bile duct; D50.0 Iron deficiency anemia secondary to blood loss (chronic); G62.0 Drug-induced polyneuropathy

== ENCOUNTER → 2018-02-27 | Outpatient (CLI) | payer OTHER ==
[2018-02-27 16:52] LABS: BASO # 0.1 10*3/uL (0.0-0.1); BASO % 1.5 % (0.0-1.0); EOS # 0.3 10*3/uL (0.0-0.4); EOS % 8.1 % (1.0-4.0); HEMATOCRIT 33.7 % (42.0-52.0); HEMOGLOBIN 11.2 g/dl (14.0-18.0); LYMPH # 0.4 10*3/uL (1.3-4.4); MEAN CELL VOLUME 86.2 fl (80.0-94.0); MEAN CORPUSCULAR HGB 28.6 pg (27.0-31.0); MEAN CORPUSCULAR HGB CONC 33.2 g/dl (33.0-37.0); MEAN PLATELET VOLUME 9.5 fl (9.6-12.3); MONO # 0.5 10*3/uL (0.1-1.0); MONO % 14.3 % (3.0-9.0); NEUT # 2.2 10*3/uL (2.3-7.9); NEUT % 64.8 % (47.0-73.0); PLATELET COUNT AUTOMATED 54 10*3/uL (130-400); RED BLOOD COUNT 3.91 10*6/uL (4.50-5.90); WHITE BLOOD COUNT 3.4 10*3/uL (4.8-10.8)
[2018-02-27 17:27] LABS: ALBUMIN 2.9 gm/dl (3.1-4.5); ALKALINE PHOSPHATASE 251 U/L (45-117); BUN 3 mg/dl (7-24); CEA 10.3 ng/mL; CHLORIDE 108 mmol/L (98-107); CREATININE 0.53 mg/dL (0.70-1.30); IRON 64 ug/dL (65-175); PHOSPHOROUS 3.5 mg/dL (2.5-4.9); POTASSIUM 3.4 mmol/L (3.5-5.1); SGOT/AST 68 IU/L (3-35); SGPT/ALT 48 U/L (12-78); SODIUM 142 mmol/L (136-145); TOTAL IRON BINDING CAPACITY 354 ug/dl (250-450); TOTAL PROTEIN 5.6 gm/dL (6.4-8.2)
== END | disposition home or self-care (01) ==
LOC: LAB 16:33
PROVIDERS: Internal Medicine Hematology & Oncology
DX: C77.2 Secondary and unspecified malignant neoplasm of intra-abdominal lymph nodes (principal); D50.0 Iron deficiency anemia secondary to blood loss (chronic); G62.0 Drug-induced polyneuropathy

== ENCOUNTER → 2018-03-27 | Outpatient (CLI) | payer OTHER ==
[~2018-03-27] MED LIST changes: +Motrin,Rufen800 MG PO
[2018-03-27 09:18] LABS: ALBUMIN 3.2 gm/dl (3.1-4.5); ALKALINE PHOSPHATASE 305 U/L (45-117); BUN 3 mg/dl (7-24); CHLORIDE 104 mmol/L (98-107); CREATININE 0.67 mg/dL (0.70-1.30); IRON 196 ug/dL (65-175); POTASSIUM 3.9 mmol/L (3.5-5.1); SGOT/AST 65 IU/L (3-35); SGPT/ALT 51 U/L (12-78); SODIUM 141 mmol/L (136-145); TOTAL IRON BINDING CAPACITY 391 ug/dl (250-450); TOTAL PROTEIN 6.3 gm/dL (6.4-8.2)
[2018-03-27 09:20] LABS: CEA 14.2 ng/mL
[2018-03-27 09:45] LABS: BASO % 1.1 % (0.0-1.0); EOS # 0.2 10*3/uL (0.0-0.4); EOS % 8.2 % (1.0-4.0); HEMOGLOBIN 12.9 g/dl (14.0-18.0); LYMPH # 0.3 10*3/uL (1.3-4.4); LYMPH % 12.4 % (27.0-41.0); MEAN CELL VOLUME 87.7 fl (80.0-94.0); MEAN CORPUSCULAR HGB 28.3 pg (27.0-31.0); MEAN CORPUSCULAR HGB CONC 32.3 g/dl (33.0-37.0); MEAN PLATELET VOLUME 10.5 fl (9.6-12.3); MONO # 0.3 10*3/uL (0.1-1.0); MONO % 10.9 % (3.0-9.0); NEUT # 1.8 10*3/uL (2.3-7.9); NEUT % 67.4 % (47.0-73.0); PLATELET COUNT AUTOMATED 68 10*3/uL (130-400); RED BLOOD COUNT 4.56 10*6/uL (4.50-5.90); RED CELL DISTRI WIDTH 18.6 % (0-14.5); WHITE BLOOD COUNT 2.7 10*3/uL (4.8-10.8)
== END | disposition home or self-care (01) ==
LOC: LAB 08:11
PROVIDERS: Internal Medicine Hematology & Oncology
DX: C18.3 Malignant neoplasm of hepatic flexure (principal); C78.7 Secondary malignant neoplasm of liver and intrahepatic bile duct; D50.0 Iron deficiency anemia secondary to blood loss (chronic); G62.0 Drug-induced polyneuropathy

== ENCOUNTER → 2018-04-10 | Outpatient (CLI) | payer OTHER ==
[2018-04-10 13:42] LABS: HEMATOCRIT 36.1 % (42.0-52.0); HEMOGLOBIN 12.3 g/dl (14.0-18.0); MEAN CELL VOLUME 85.1 fl (80.0-94.0); MEAN CORPUSCULAR HGB CONC 34.1 g/dl (33.0-37.0); MEAN PLATELET VOLUME 7.4 fl (9.6-12.3); PLATELET COUNT AUTOMATED 41 10*3/uL (130-400); RED BLOOD COUNT 4.24 10*6/uL (4.50-5.90); RED CELL DISTRI WIDTH 20.9 % (0-14.5)
[2018-04-10 14:07] LABS: ALKALINE PHOSPHATASE 383 U/L (45-117); BUN 2 mg/dl (7-24); CEA 12.9 ng/mL; CHLORIDE 106 mmol/L (98-107); CREATININE 0.63 mg/dL (0.70-1.30); PHOSPHOROUS 3.3 mg/dL (2.5-4.9); POTASSIUM 3.5 mmol/L (3.5-5.1); SGOT/AST 62 IU/L (3-35); SGPT/ALT 46 U/L (12-78); SODIUM 141 mmol/L (136-145); TOTAL PROTEIN 5.5 gm/dL (6.4-8.2)
[2018-04-10 14:08] LABS: BASOPHILS 1 % (0-1); PLATELET SUFFICIENCY LOW (NORMAL); POLYCHROMASIA SLIGHT; TOTAL CELLS COUNTED 100 #CELLS
== END | disposition home or self-care (01) ==
LOC: LAB 13:05
PROVIDERS: Internal Medicine Hematology & Oncology
DX: C18.3 Malignant neoplasm of hepatic flexure (principal); C78.7 Secondary malignant neoplasm of liver and intrahepatic bile duct; C77.2 Secondary and unspecified malignant neoplasm of intra-abdominal lymph nodes; D50.0 Iron deficiency anemia secondary to blood loss (chronic); G62.0 Drug-induced polyneuropathy

== ENCOUNTER → 2018-04-30 | Outpatient (CLI) | payer OTHER ==
[2018-04-30 14:40] LABS: HEMATOCRIT 30.7 % (42.0-52.0); HEMOGLOBIN 10.6 g/dl (14.0-18.0); MEAN CELL VOLUME 87.5 fl (80.0-94.0); MEAN CORPUSCULAR HGB 30.2 pg (27.0-31.0); MEAN CORPUSCULAR HGB CONC 34.5 g/dl (33.0-37.0); MEAN PLATELET VOLUME 8.7 fl (9.6-12.3); PLATELET COUNT AUTOMATED 52 10*3/uL (130-400); RED BLOOD COUNT 3.51 10*6/uL (4.50-5.90); RED CELL DISTRI WIDTH 23.2 % (0-14.5); WHITE BLOOD COUNT 13.6 10*3/uL (4.8-10.8)
[2018-04-30 15:10] LABS: ALBUMIN 2.6 gm/dl (3.1-4.5); ALKALINE PHOSPHATASE 347 U/L (45-117); BUN 9 mg/dl (7-24); CHLORIDE 102 mmol/L (98-107); CREATININE 0.71 mg/dL (0.70-1.30); PHOSPHOROUS 2.7 mg/dL (2.5-4.9); POTASSIUM 3.5 mmol/L (3.5-5.1); SGOT/AST 74 IU/L (3-35); SGPT/ALT 55 U/L (12-78); SODIUM 137 mmol/L (136-145); TOTAL PROTEIN 5.7 gm/dL (6.4-8.2)
[2018-04-30 15:14] LABS: BASOPHILS 1 % (0-1); TOTAL CELLS COUNTED 100 #CELLS
[2018-04-30 15:15] LABS: PLATELET SUFFICIENCY LOW (NORMAL); POLYCHROMASIA SLIGHT
== END | disposition home or self-care (01) ==
LOC: LAB 14:15
PROVIDERS: Internal Medicine Hematology & Oncology
DX: C18.3 Malignant neoplasm of hepatic flexure (principal); C78.7 Secondary malignant neoplasm of liver and intrahepatic bile duct; C77.2 Secondary and unspecified malignant neoplasm of intra-abdominal lymph nodes; E50.0 Vitamin A deficiency with conjunctival xerosis; G62.0 Drug-induced polyneuropathy

== ENCOUNTER → 2018-05-14 | Outpatient (CLI) | payer OTHER ==
[2018-05-14 13:41] LABS: BASO # 0.1 10*3/uL (0.0-0.1); BASO % 2.1 % (0.0-1.0); EOS # 0.5 10*3/uL (0.0-0.4); EOS % 11.6 % (1.0-4.0); HEMATOCRIT 31.7 % (42.0-52.0); HEMOGLOBIN 10.5 g/dl (14.0-18.0); LYMPH # 0.4 10*3/uL (1.3-4.4); LYMPH % 8.9 % (27.0-41.0); MEAN CELL VOLUME 86.4 fl (80.0-94.0); MEAN CORPUSCULAR HGB 28.6 pg (27.0-31.0); MEAN CORPUSCULAR HGB CONC 33.1 g/dl (33.0-37.0); MEAN PLATELET VOLUME 9.2 fl (9.6-12.3); MONO # 0.6 10*3/uL (0.1-1.0); NEUT # 2.8 10*3/uL (2.3-7.9); NEUT % 64.2 % (47.0-73.0); PLATELET COUNT AUTOMATED 61 10*3/uL (130-400); RED BLOOD COUNT 3.67 10*6/uL (4.50-5.90); RED CELL DISTRI WIDTH 19.4 % (0-14.5); WHITE BLOOD COUNT 4.4 10*3/uL (4.8-10.8)
[2018-05-14 14:16] LABS: ALBUMIN 2.6 gm/dl (3.1-4.5); ALKALINE PHOSPHATASE 312 U/L (45-117); BILIRUBIN, DIRECT 0.7 mg/dL (0.0-0.2); BUN 7 mg/dl (7-24); CHLORIDE 103 mmol/L (98-107); CREATININE 0.59 mg/dL (0.70-1.30); PHOSPHOROUS 3.4 mg/dL (2.5-4.9); POTASSIUM 3.6 mmol/L (3.5-5.1); SGOT/AST 85 IU/L (3-35); SGPT/ALT 60 U/L (12-78); SODIUM 138 mmol/L (136-145); TOTAL PROTEIN 5.4 gm/dL (6.4-8.2)
== END | disposition home or self-care (01) ==
LOC: LAB 13:14
PROVIDERS: Internal Medicine Hematology & Oncology
DX: C18.3 Malignant neoplasm of hepatic flexure (principal); C77.2 Secondary and unspecified malignant neoplasm of intra-abdominal lymph nodes; C78.7 Secondary malignant neoplasm of liver and intrahepatic bile duct; D69.59 Other secondary thrombocytopenia; D50.0 Iron deficiency anemia secondary to blood loss (chronic); R94.5 Abnormal results of liver function studies

== ENCOUNTER → 2018-05-21 | Outpatient (CLI) | payer OTHER ==
[2018-05-21 15:58] LABS: BASO # 0.1 10*3/uL (0.0-0.1); EOS # 0.4 10*3/uL (0.0-0.4); EOS % 11.1 % (1.0-4.0); HEMATOCRIT 34.5 % (42.0-52.0); HEMOGLOBIN 11.2 g/dl (14.0-18.0); LYMPH # 0.5 10*3/uL (1.3-4.4); LYMPH % 13.4 % (27.0-41.0); MEAN CELL VOLUME 83.5 fl (80.0-94.0); MEAN CORPUSCULAR HGB 27.1 pg (27.0-31.0); MEAN CORPUSCULAR HGB CONC 32.5 g/dl (33.0-37.0); MEAN PLATELET VOLUME 7.7 fl (9.6-12.3); MONO # 0.3 10*3/uL (0.1-1.0); MONO % 9.9 % (3.0-9.0); NEUT # 2.2 10*3/uL (2.3-7.9); NEUT % 63.3 % (47.0-73.0); PLATELET COUNT AUTOMATED 51 10*3/uL (130-400); RED BLOOD COUNT 4.13 10*6/uL (4.50-5.90); RED CELL DISTRI WIDTH 18.2 % (0-14.5); WHITE BLOOD COUNT 3.4 10*3/uL (4.8-10.8)
[2018-05-21 16:14] LABS: ALBUMIN 2.7 gm/dl (3.1-4.5); ALKALINE PHOSPHATASE 355 U/L (45-117); BUN 7 mg/dl (7-24); CHLORIDE 102 mmol/L (98-107); IRON 27 ug/dL (65-175); PHOSPHOROUS 3.4 mg/dL (2.5-4.9); SGOT/AST 60 IU/L (3-35); SGPT/ALT 46 U/L (12-78); SODIUM 137 mmol/L (136-145); TOTAL IRON BINDING CAPACITY 345 ug/dl (250-450); TOTAL PROTEIN 5.8 gm/dL (6.4-8.2)
[2018-05-21 16:40] LABS: BILIRUBIN, DIRECT 0.9 mg/dL (0.0-0.2)
[2018-05-21 16:52] LABS: FERRITIN 27.2 ng/mL (22.0-322.0)
[2018-05-22 07:07] LABS: HEPATITIS B SURFACE AG Negative (Negative); HEPATITIS C VIRUS ANTIBODY <0.1 s/co (0.0-0.9)
== END | disposition home or self-care (01) ==
LOC: LAB 15:39
PROVIDERS: Internal Medicine Hematology & Oncology
DX: C18.3 Malignant neoplasm of hepatic flexure (principal); C78.7 Secondary malignant neoplasm of liver and intrahepatic bile duct; C72.20 Malignant neoplasm of unspecified olfactory nerve; D69.59 Other secondary thrombocytopenia; D50.0 Iron deficiency anemia secondary to blood loss (chronic); R94.5 Abnormal results of liver function studies

== ENCOUNTER 2018-05-24 06:41 | Emergency (ER) | payer OTHER ==
[~2018-05-24] VITALS: Ht 170.1 cm; Wt 59.0 kg
[~2018-05-24 06:41] MED LIST changes: -Motrin,Rufen800 MG PO
[2018-05-24 07:49] LABS: ALBUMIN 2.3 gm/dl (3.1-4.5); ALKALINE PHOSPHATASE 332 U/L (45-117); BUN 7 mg/dl (7-24); CHLORIDE 104 mmol/L (98-107); CREATININE 0.58 mg/dL (0.70-1.30); LIPASE 117 U/L (73-393); POTASSIUM 3.2 mmol/L (3.5-5.1); SGOT/AST 61 IU/L (3-35); SGPT/ALT 42 U/L (12-78); SODIUM 138 mmol/L (136-145); TOTAL PROTEIN 5.1 gm/dL (6.4-8.2)
[2018-05-24 08:15] LABS: BASO # 0.1 10*3/uL (0.0-0.1); EOS # 0.4 10*3/uL (0.0-0.4); EOS % 11.5 % (1.0-4.0); HEMATOCRIT 30.3 % (42.0-52.0); LYMPH # 0.5 10*3/uL (1.3-4.4); LYMPH % 12.6 % (27.0-41.0); MEAN CELL VOLUME 82.6 fl (80.0-94.0); MEAN CORPUSCULAR HGB 27.2 pg (27.0-31.0); MEAN PLATELET VOLUME 9.2 fl (9.6-12.3); MONO # 0.4 10*3/uL (0.1-1.0); MONO % 11.8 % (3.0-9.0); NEUT # 2.2 10*3/uL (2.3-7.9); NEUT % 61.8 % (47.0-73.0); PLATELET COUNT AUTOMATED 59 10*3/uL (130-400); RED BLOOD COUNT 3.67 10*6/uL (4.50-5.90); RED CELL DISTRI WIDTH 17.7 % (0-14.5); WHITE BLOOD COUNT 3.6 10*3/uL (4.8-10.8)
[2018-05-24] MEDS ORDERED: Motrin,Rufen800 MG PO (09:30)
== END 2018-05-24 10:00 | disposition home or self-care (01) ==
LOC: ED 06:41
PROVIDERS: Emergency Medicine
DX: M79.662 Pain in left lower leg (principal)

== ENCOUNTER → 2018-05-28 | Outpatient (CLI) | payer OTHER ==
[~2018-05-28] MED LIST changes: +Motrin,Rufen800 MG PO
[2018-05-28 13:27] LABS: BASO # 0.1 10*3/uL (0.0-0.1); BASO % 1.9 % (0.0-1.0); EOS # 0.4 10*3/uL (0.0-0.4); HEMATOCRIT 33.4 % (42.0-52.0); HEMOGLOBIN 10.7 g/dl (14.0-18.0); LYMPH # 0.5 10*3/uL (1.3-4.4); LYMPH % 15.8 % (27.0-41.0); MEAN CELL VOLUME 82.7 fl (80.0-94.0); MEAN CORPUSCULAR HGB 26.5 pg (27.0-31.0); MONO # 0.4 10*3/uL (0.1-1.0); MONO % 11.4 % (3.0-9.0); NEUT # 1.9 10*3/uL (2.3-7.9); NEUT % 58.9 % (47.0-73.0); PLATELET COUNT AUTOMATED 75 10*3/uL (130-400); RED BLOOD COUNT 4.04 10*6/uL (4.50-5.90); RED CELL DISTRI WIDTH 17.2 % (0-14.5); WHITE BLOOD COUNT 3.2 10*3/uL (4.8-10.8)
[2018-05-28 13:39] LABS: ALBUMIN 2.5 gm/dl (3.1-4.5); ALKALINE PHOSPHATASE 354 U/L (45-117); BILIRUBIN, DIRECT 0.7 mg/dL (0.0-0.2); BUN 6 mg/dl (7-24); CHLORIDE 103 mmol/L (98-107); CREATININE 0.63 mg/dL (0.70-1.30); PHOSPHOROUS 3.5 mg/dL (2.5-4.9); POTASSIUM 3.6 mmol/L (3.5-5.1); SGOT/AST 56 IU/L (3-35); SGPT/ALT 39 U/L (12-78); SODIUM 138 mmol/L (136-145); TOTAL PROTEIN 5.4 gm/dL (6.4-8.2)
== END | disposition home or self-care (01) ==
LOC: LAB 12:21
PROVIDERS: Internal Medicine Hematology & Oncology
DX: C18.3 Malignant neoplasm of hepatic flexure (principal); C78.7 Secondary malignant neoplasm of liver and intrahepatic bile duct; R77.2 Abnormality of alphafetoprotein; D69.59 Other secondary thrombocytopenia; R94.5 Abnormal results of liver function studies; D50.0 Iron deficiency anemia secondary to blood loss (chronic)

== ENCOUNTER → 2018-06-26 | Outpatient (CLI) | payer OTHER ==
[2018-06-26 15:47] LABS: BASO # 0.2 10*3/uL (0.0-0.1); BASO % 2.9 % (0.0-1.0); EOS # 0.2 10*3/uL (0.0-0.4); EOS % 3.3 % (1.0-4.0); HEMATOCRIT 38.6 % (42.0-52.0); HEMOGLOBIN 12.1 g/dl (14.0-18.0); LYMPH # 0.5 10*3/uL (1.3-4.4); LYMPH % 8.2 % (27.0-41.0); MEAN CELL VOLUME 81.6 fl (80.0-94.0); MEAN CORPUSCULAR HGB 25.6 pg (27.0-31.0); MEAN CORPUSCULAR HGB CONC 31.3 g/dl (33.0-37.0); MEAN PLATELET VOLUME 8.6 fl (9.6-12.3); MONO # 0.6 10*3/uL (0.1-1.0); NEUT # 4.6 10*3/uL (2.3-7.9); NEUT % 75.4 % (47.0-73.0); PLATELET COUNT AUTOMATED 115 10*3/uL (130-400); RED BLOOD COUNT 4.73 10*6/uL (4.50-5.90); RED CELL DISTRI WIDTH 21.5 % (0-14.5); WHITE BLOOD COUNT 6.1 10*3/uL (4.8-10.8)
[2018-06-26 16:10] LABS: ALBUMIN 2.5 gm/dl (3.1-4.5); ALKALINE PHOSPHATASE 640 U/L (45-117); BILIRUBIN, DIRECT 0.9 mg/dL (0.0-0.2); BUN 6 mg/dl (7-24); CEA 53.2 ng/mL; CHLORIDE 99 mmol/L (98-107); CREATININE 0.68 mg/dL (0.70-1.30); IRON 42 ug/dL (65-175); PHOSPHOROUS 3.1 mg/dL (2.5-4.9); POTASSIUM 3.6 mmol/L (3.5-5.1); SGOT/AST 76 IU/L (3-35); SGPT/ALT 49 U/L (12-78); SODIUM 138 mmol/L (136-145); TOTAL IRON BINDING CAPACITY 334 ug/dl (250-450)
[2018-06-26 16:36] LABS: FERRITIN 67.5 ng/mL (22.0-322.0)
== END | disposition home or self-care (01) ==
LOC: LAB 14:59
PROVIDERS: Internal Medicine Hematology & Oncology
DX: D50.0 Iron deficiency anemia secondary to blood loss (chronic) (principal); D69.59 Other secondary thrombocytopenia; C78.7 Secondary malignant neoplasm of liver and intrahepatic bile duct; C18.3 Malignant neoplasm of hepatic flexure; C77.2 Secondary and unspecified malignant neoplasm of intra-abdominal lymph nodes; R94.5 Abnormal results of liver function studies

== ENCOUNTER → 2018-07-10 | Outpatient (CLI) | payer OTHER ==
[2018-07-10 15:00] LABS: BASO # 0.1 10*3/uL (0.0-0.1); BASO % 0.6 % (0.0-1.0); EOS # 0.3 10*3/uL (0.0-0.4); EOS % 2.5 % (1.0-4.0); HEMOGLOBIN 10.6 g/dl (14.0-18.0); LYMPH # 0.6 10*3/uL (1.3-4.4); LYMPH % 4.7 % (27.0-41.0); MEAN CELL VOLUME 79.1 fl (80.0-94.0); MEAN CORPUSCULAR HGB 24.7 pg (27.0-31.0); MEAN CORPUSCULAR HGB CONC 31.2 g/dl (33.0-37.0); MEAN PLATELET VOLUME 7.6 fl (9.6-12.3); MONO # 0.7 10*3/uL (0.1-1.0); MONO % 5.3 % (3.0-9.0); NEUT # 10.5 10*3/uL (2.3-7.9); NEUT % 85.9 % (47.0-73.0); PLATELET COUNT AUTOMATED 88 10*3/uL (130-400); RED CELL DISTRI WIDTH 21.2 % (0-14.5); WHITE BLOOD COUNT 12.2 10*3/uL (4.8-10.8)
[2018-07-10 15:34] LABS: ALBUMIN 2.4 gm/dl (3.1-4.5); ALKALINE PHOSPHATASE 520 U/L (45-117); BILIRUBIN, DIRECT 0.6 mg/dL (0.0-0.2); BUN 5 mg/dl (7-24); CHLORIDE 99 mmol/L (98-107); CREATININE 0.59 mg/dL (0.70-1.30); PHOSPHOROUS 4.1 mg/dL (2.5-4.9); POTASSIUM 4.3 mmol/L (3.5-5.1); SGOT/AST 44 IU/L (3-35); SGPT/ALT 34 U/L (12-78); SODIUM 137 mmol/L (136-145); TOTAL PROTEIN 5.2 gm/dL (6.4-8.2)
== END | disposition home or self-care (01) ==
LOC: LAB 14:20
PROVIDERS: Internal Medicine Hematology & Oncology
DX: C78.7 Secondary malignant neoplasm of liver and intrahepatic bile duct (principal); C77.2 Secondary and unspecified malignant neoplasm of intra-abdominal lymph nodes; C18.3 Malignant neoplasm of hepatic flexure; D69.59 Other secondary thrombocytopenia; R94.5 Abnormal results of liver function studies; D50.0 Iron deficiency anemia secondary to blood loss (chronic)

== ENCOUNTER → 2018-07-24 | Outpatient (CLI) | payer OTHER ==
[~2018-07-24] MED LIST changes: +ALDACTONE25 M1 PO; +ALDACTONE25 MG PO; +CLOTRIMAZOLE TR10 MG PO; +Clotrimazole Tr10 MG PO; +LOMOTIL 2.5-0.1 EACH PO; +NATURE'S BLEND F1 MG PO; +TRAMADOL HCL50 MG PO
[2018-07-24 18:42] LABS: BASO # 0.1 10*3/uL (0.0-0.1); BASO % 1.1 % (0.0-1.0); EOS # 0.4 10*3/uL (0.0-0.4); HEMATOCRIT 36.9 % (42.0-52.0); HEMOGLOBIN 11.6 g/dl (14.0-18.0); LYMPH # 0.5 10*3/uL (1.3-4.4); LYMPH % 4.6 % (27.0-41.0); MEAN CELL VOLUME 78.8 fl (80.0-94.0); MEAN CORPUSCULAR HGB 24.8 pg (27.0-31.0); MEAN CORPUSCULAR HGB CONC 31.4 g/dl (33.0-37.0); MEAN PLATELET VOLUME 8.5 fl (9.6-12.3); MONO # 0.6 10*3/uL (0.1-1.0); MONO % 5.5 % (3.0-9.0); NEUT # 9.9 10*3/uL (2.3-7.9); NEUT % 85.3 % (47.0-73.0); PLATELET COUNT AUTOMATED 140 10*3/uL (130-400); RED BLOOD COUNT 4.68 10*6/uL (4.50-5.90); WHITE BLOOD COUNT 11.6 10*3/uL (4.8-10.8)
[2018-07-24 19:13] LABS: ALBUMIN 2.8 gm/dl (3.1-4.5); ALKALINE PHOSPHATASE 538 U/L (45-117); BILIRUBIN, DIRECT 0.5 mg/dL (0.0-0.2); BUN 9 mg/dl (7-24); CEA 35.5 ng/mL; CHLORIDE 100 mmol/L (98-107); CREATININE 0.59 mg/dL (0.70-1.30); IRON 42 ug/dL (65-175); PHOSPHOROUS 3.4 mg/dL (2.5-4.9); POTASSIUM 4.4 mmol/L (3.5-5.1); SGOT/AST 44 IU/L (3-35); SGPT/ALT 36 U/L (12-78); SODIUM 136 mmol/L (136-145); TOTAL IRON BINDING CAPACITY 337 ug/dl (250-450)
== END | disposition home or self-care (01) ==
LOC: LAB 17:46
PROVIDERS: Internal Medicine Hematology & Oncology
DX: C18.3 Malignant neoplasm of hepatic flexure (principal); C78.7 Secondary malignant neoplasm of liver and intrahepatic bile duct; C77.2 Secondary and unspecified malignant neoplasm of intra-abdominal lymph nodes; D69.59 Other secondary thrombocytopenia; R94.5 Abnormal results of liver function studies; D50.0 Iron deficiency anemia secondary to blood loss (chronic)

== ENCOUNTER → 2018-08-06 | Outpatient (CLI) | payer OTHER ==
[2018-08-06 16:54] LABS: BASO # 0.1 10*3/uL (0.0-0.1); BASO % 1.2 % (0.0-1.0); EOS # 0.4 10*3/uL (0.0-0.4); EOS % 4.2 % (1.0-4.0); HEMOGLOBIN 11.2 g/dl (14.0-18.0); LYMPH # 0.8 10*3/uL (1.3-4.4); LYMPH % 7.1 % (27.0-41.0); MEAN CORPUSCULAR HGB 24.5 pg (27.0-31.0); MEAN CORPUSCULAR HGB CONC 30.3 g/dl (33.0-37.0); MEAN PLATELET VOLUME 8.4 fl (9.6-12.3); MONO # 0.9 10*3/uL (0.1-1.0); MONO % 8.3 % (3.0-9.0); NEUT # 8.3 10*3/uL (2.3-7.9); NEUT % 78.4 % (47.0-73.0); PLATELET COUNT AUTOMATED 146 10*3/uL (130-400); RED BLOOD COUNT 4.57 10*6/uL (4.50-5.90); RED CELL DISTRI WIDTH 23.3 % (0-14.5); WHITE BLOOD COUNT 10.5 10*3/uL (4.8-10.8)
[2018-08-06 17:11] LABS: ALBUMIN 2.6 gm/dl (3.1-4.5); ALKALINE PHOSPHATASE 485 U/L (45-117); BILIRUBIN, DIRECT 0.6 mg/dL (0.0-0.2); BUN 7 mg/dl (7-24); CHLORIDE 96 mmol/L (98-107); CREATININE 0.55 mg/dL (0.70-1.30); PHOSPHOROUS 3.4 mg/dL (2.5-4.9); POTASSIUM 3.7 mmol/L (3.5-5.1); SGOT/AST 47 IU/L (3-35); SGPT/ALT 36 U/L (12-78); SODIUM 132 mmol/L (136-145); TOTAL PROTEIN 5.3 gm/dL (6.4-8.2)
== END | disposition home or self-care (01) ==
LOC: LAB 16:07
PROVIDERS: Internal Medicine Hematology & Oncology
DX: C18.3 Malignant neoplasm of hepatic flexure (principal); C78.7 Secondary malignant neoplasm of liver and intrahepatic bile duct; C77.2 Secondary and unspecified malignant neoplasm of intra-abdominal lymph nodes; D69.59 Other secondary thrombocytopenia; D50.0 Iron deficiency anemia secondary to blood loss (chronic); R94.5 Abnormal results of liver function studies

== ENCOUNTER → 2018-08-20 | Outpatient (CLI) | payer OTHER ==
[2018-08-20 17:57] LABS: BASO # 0.1 10*3/uL (0.0-0.1); BASO % 0.9 % (0.0-1.0); EOS # 0.2 10*3/uL (0.0-0.4); EOS % 1.6 % (1.0-4.0); HEMATOCRIT 36.9 % (42.0-52.0); HEMOGLOBIN 11.7 g/dl (14.0-18.0); LYMPH # 0.5 10*3/uL (1.3-4.4); LYMPH % 4.6 % (27.0-41.0); MEAN CELL VOLUME 81.1 fl (80.0-94.0); MEAN CORPUSCULAR HGB 25.7 pg (27.0-31.0); MEAN CORPUSCULAR HGB CONC 31.7 g/dl (33.0-37.0); MEAN PLATELET VOLUME 8.4 fl (9.6-12.3); MONO # 1.2 10*3/uL (0.1-1.0); MONO % 10.5 % (3.0-9.0); NEUT # 9.2 10*3/uL (2.3-7.9); NEUT % 81.2 % (47.0-73.0); PLATELET COUNT AUTOMATED 135 10*3/uL (130-400); RED BLOOD COUNT 4.55 10*6/uL (4.50-5.90); RED CELL DISTRI WIDTH 23.7 % (0-14.5); WHITE BLOOD COUNT 11.3 10*3/uL (4.8-10.8)
[2018-08-20 18:16] LABS: ALBUMIN 2.8 gm/dl (3.1-4.5); ALKALINE PHOSPHATASE 816 U/L (45-117); BILIRUBIN, DIRECT 2.5 mg/dL (0.0-0.2); BUN 8 mg/dl (7-24); CHLORIDE 98 mmol/L (98-107); CREATININE 0.64 mg/dL (0.70-1.30); IRON 51 ug/dL (65-175); PHOSPHOROUS 3.9 mg/dL (2.5-4.9); POTASSIUM 4.1 mmol/L (3.5-5.1); SGOT/AST 123 IU/L (3-35); SGPT/ALT 103 U/L (12-78); SODIUM 134 mmol/L (136-145); TOTAL IRON BINDING CAPACITY 306 ug/dl (250-450); TOTAL PROTEIN 5.7 gm/dL (6.4-8.2)
[2018-08-20 18:17] LABS: CEA 41.5 ng/mL
[2018-08-20 19:07] LABS: FERRITIN 264.5 ng/mL (22.0-322.0)
[2018-08-21 07:10] LABS: HEPATITIS B SURFACE AG Negative (Negative); HEPATITIS C VIRUS ANTIBODY <0.1 s/co (0.0-0.9)
== END | disposition home or self-care (01) ==
LOC: LAB 17:18
PROVIDERS: Internal Medicine Hematology & Oncology
DX: C18.3 Malignant neoplasm of hepatic flexure (principal); C77.2 Secondary and unspecified malignant neoplasm of intra-abdominal lymph nodes; C78.7 Secondary malignant neoplasm of liver and intrahepatic bile duct; D69.59 Other secondary thrombocytopenia; D50.0 Iron deficiency anemia secondary to blood loss (chronic); R94.5 Abnormal results of liver function studies

== ENCOUNTER → 2018-09-04 | Outpatient (CLI) | payer OTHER ==
[2018-09-04 09:40] LABS: BASO # 0.1 10*3/uL (0.0-0.1); BASO % 1.1 % (0.0-1.0); EOS # 0.1 10*3/uL (0.0-0.4); EOS % 1.7 % (1.0-4.0); HEMOGLOBIN 11.6 g/dl (14.0-18.0); LYMPH # 0.6 10*3/uL (1.3-4.4); LYMPH % 9.8 % (27.0-41.0); MEAN CELL VOLUME 80.8 fl (80.0-94.0); MEAN CORPUSCULAR HGB 25.3 pg (27.0-31.0); MEAN CORPUSCULAR HGB CONC 31.4 g/dl (33.0-37.0); MEAN PLATELET VOLUME 7.4 fl (9.6-12.3); MONO # 0.6 10*3/uL (0.1-1.0); NEUT # 4.9 10*3/uL (2.3-7.9); NEUT % 76.9 % (47.0-73.0); PLATELET COUNT AUTOMATED 115 10*3/uL (130-400); RED BLOOD COUNT 4.58 10*6/uL (4.50-5.90); RED CELL DISTRI WIDTH 22.5 % (0-14.5); WHITE BLOOD COUNT 6.4 10*3/uL (4.8-10.8)
[2018-09-04 10:16] LABS: ALBUMIN 2.7 gm/dl (3.1-4.5); ALKALINE PHOSPHATASE 483 U/L (45-117); BILIRUBIN, DIRECT 0.8 mg/dL (0.0-0.2); BUN 6 mg/dl (7-24); CHLORIDE 99 mmol/L (98-107); CREATININE 0.59 mg/dL (0.70-1.30); PHOSPHOROUS 3.3 mg/dL (2.5-4.9); POTASSIUM 3.9 mmol/L (3.5-5.1); SGOT/AST 41 IU/L (3-35); SODIUM 134 mmol/L (136-145); TOTAL PROTEIN 5.3 gm/dL (6.4-8.2)
[2018-09-04 10:18] LABS: SGPT/ALT 37 U/L (12-78)
== END | disposition home or self-care (01) ==
LOC: LAB 09:21
PROVIDERS: Internal Medicine Hematology & Oncology
DX: C18.3 Malignant neoplasm of hepatic flexure (principal); C77.2 Secondary and unspecified malignant neoplasm of intra-abdominal lymph nodes; C78.7 Secondary malignant neoplasm of liver and intrahepatic bile duct; D50.0 Iron deficiency anemia secondary to blood loss (chronic); D69.59 Other secondary thrombocytopenia; R94.5 Abnormal results of liver function studies